=== PATIENT | female | born 1990 | race Caucasian/White ===

== ENCOUNTER 2019-08-28 13:39 | Emergency (ER) | payer MEDICAID, SELFPAY ==
[2019-08-28 13:52] VITALS: BMI 24.5
[2019-08-28 13:57] VITALS: BP 122/87; PULSE 84; RESP 16; TEMP 36.8; O2SAT 96
[2019-08-28 14:07] VITALS: O2SAT 96
--- NOTE | 2019-08-28 14:07 | ED_ITS ---
HPI - Fall General: Chief Complaint: Fall Stated Complaint: RIGHT WRIST PAIN/FALL AND LEFT KNEE PAIN Time Seen by Provider: 08/28/19 13:55 History of Present Illness: HPI Narrative: 27-year-old female tripped last night around 9 or 10:00 at night while carrying her daughter into how she stumbled on threshold and went down she scraped her left knee and fell on her right hand pretty significant abrasion to the knee no active bleeding. She complaining of right wrist pain there is no deformity or swelling. No previous injury to the knee or the wrist affected today. She denies any other injuries not strike her head did not lose consciousness her last tetanus shot was approximately 3 years ago. MD complaint: fall Onset (ago): hour(s) (15) Fall from: other (Stumbled on the stairs while going into the house) Place fall occurred: home Loss of consciousness: None Prolonged down time: no Symptoms prior to fall: none Context: tripped/slipped Severity: severe Quality: burning and sharp Associated symptoms-after fall: Denies abdominal pain, chest pain, confusion, difficulty walking, headache(s), hematuria, lightheadedness, neck pain, numbness, short of breath, vertigo or weakness Review of Systems Const: Denies: fever, chills, body aches, change in appetite, fatigue or malaise ENMT: Denies: throat pain, ear pain, nasal discharge or nasal congestion Card: Denies: chest pain or lightheadedness Resp: Denies: shortness of breath, productive cough or non-productive cough GI: Denies: abdominal pain : Denies: blood in urine Musc: Denies: neck pain Skin/Breast: Denies: rash or itching Neuro: Denies: headache, difficulty walking, vertigo or confusion [facility] ED PFSH: Social History Smoking and tobacco status: current every day smoker Female Reproductive History: Date of last menstrual period: 07/29/19 Physical Exam Const: COMMON NORMALS: no apparent distress GENERAL APPEARANCE: cooperative and comfortable ORIENTATION/CONSCIOUSNESS: Yes awake, Yes oriented to person, Yes oriented to place and Yes oriented to time HENMT: COMMON NORMALS: normocephalic, head/scalp atraumatic, hearing grossly normal bilaterally, external ears normal, EAC's normal, TM's normal bilaterally, nasal mucous membranes and turbinates normal, moist oral mucous membranes and oropharynx normal HEAD & SCALP: normocephalic and atraumatic NOSE: nasal mucous membranes and turbinates normal EXTERNAL EAR: Yes external ears normal EXTERNAL AUDITORY CANAL: EAC's normal TYMPANIC MEMBRANE: TM's normal bilaterally Eye: COMMON NORMALS: PERRL, EOMs intact bilaterally, conjunctivae normal and no scleral icterus CONJUNCTIVA: Yes conjunctivae normal PUPIL: Yes PERRL Neck/C-Spine: COMMON NORMALS: full ROM, no lymphadenopathy, supple and no JVD Lymph: LYMPHATIC: no lymphadenopathy noted and no lymphedema noted Resp: COMMON NORMALS: normal respiratory effort, no retractions, no use of accessory muscles and clear to auscultation bilaterally AUSCULTATION: clear to auscultation bilaterally Cardio: COMMON NORMALS: no JVD, regular rate, regular rhythm and no murmurs RATE: regular rate RHYTHM: regular rhythm GI: COMMON NORMALS: soft to palpation and no hepatosplenomegaly AUSCULTATION: Yes normoactive bowel sounds PALPATION: Yes soft, No tender, No guarding and Yes no hepatosplenomegaly Extremity: COMMON NORMALS: normal to inspection, normal capillary refill, no clubbing, cyanosis or edema, no calf tenderness and no pedal edema NARRATIVE EXTREMITY EXAM: Exquisite pain in the anatomical snuffbox with mild palpation on the right wrist. Neuro: SENSORIUM/ORIENTATION: Yes oriented to person, Yes oriented to place and Yes oriented to time Skin: COMMON NORMALS: no rashes or lesions noted GENERAL SKIN EXAM: no rashes or lesions noted Course Vital Signs: Vital signs: Vital Signs Temperature 98.2 F 08/28/19 13:57 Pulse Rate 84 08/28/19 13:57 Respiratory Rate 16 08/28/19 13:57 Blood Pressure 122/87 08/28/19 13:57 Pulse Oximetry 96 08/28/19 14:07 MDM - Fall MDM Narrative: Medical decision making narrative: X-rays are normal. I am little bit concerned about a navicular fracture on the right since she is so exquisitely tender at the anatomical snuffbox. We will put her in a thumb spica splint and have her follow-up with orthopedics next week to reevaluate further advanced imaging if deemed appropriate at that time. Discharge Plan Discharge Patient Disposition: Home, Self-Care Clinical Impression: Acute pain of right wrist, Abrasion of knee, left Condition: Stable Prescriptions: New diclofenac sodium 75 mg tablet,delayed release (DR/EC) 75 mg PO Q12H PRN (Reason: pain) Qty: 20 RF: 0 Discharge Orders: Discharge Order (Routine); Ordered 08/28/19 Ordered By: Masood Hall Referrals: Christina Arambula DO [Primary Care Provider] - Discharge Diet: Usual diet Discharge Activity: Limit activity as instructed Activity Restrictions/Additional Instructions: Case management will call for follow-up with orthopedics Coding Level of Care Code ED Terrazzo Grinder for g Fwd Exam Comprehensive
--- NOTE | 2019-08-28 14:19 | XRR_ITS ---
PROCEDURE INFORMATION: Exam: XR Right Wrist Exam date and time: 08/28/2019 2:42 PM Age: 29 years old Clinical indication: Pain; Wrist; Right; Additional info: Fall pain TECHNIQUE: Imaging protocol: XR Right wrist. Views: 3 or more views. COMPARISON: No relevant prior studies available. FINDINGS: Bones/joints: Normal. Soft tissues: Normal. XR/XR wrist RT w scaphoid [id number] IMPRESSION: No acute findings.
--- NOTE | 2019-08-28 14:27 | XRR_ITS ---
PROCEDURE INFORMATION: Exam: XR Left Knee Exam date and time: 08/28/2019 2:40 PM Age: 29 years old Clinical indication: Pain; Knee; Left; Additional info: Fall pain TECHNIQUE: Imaging protocol: XR Left knee. Views: 4 or more views. COMPARISON: No relevant prior studies available. FINDINGS: Bones/joints: Normal. Soft tissues: Normal. XR/XR knee LT 4V [id number] IMPRESSION: No acute findings.
[2019-08-28] MEDS: ketorolac 60 mg/2 mL INJ IM (15:24)
[2019-08-28 15:25] VITALS: BP 135/80; PULSE 67; O2SAT 100
--- NOTE | 2019-08-31 09:55 | DCPLANNER ---
it help desk manager had message to schedule a follow up appointment for patient with ortho. it help desk manager called the ortho clinic, spoke with Rosalva, gave clinic patients information. it help desk manager was told that patients information would be printed and reviewed. Clinic will call sample case porter and patient with appointment information.
--- NOTE | 2019-09-01 14:01 | DCPLANNER ---
Patient has a follow up appointment scheduled for Friday, August at 10:00 at ortho, with Dr. Aranda. Clinic will call patient with appointment information.
--- NOTE | 2019-09-09 16:03 | DCPLANNER ---
Patient did not attend appointment scheduled for 09.06.19 with ortho.
== END 2019-08-28 16:00 | disposition home or self-care (01) ==
LOC: ER 15:24
PROVIDERS: Emergency Provider Family Medicine; Family Provider Family Medicine; PCP Family Medicine
DX: S80.212A Abrasion, left knee, initial encounter (principal); M25.531 Pain in right wrist; W18.09XA Striking against other object with subsequent fall, initial encounter; F17.210 Nicotine dependence, cigarettes, uncomplicated
CPT/HCPCS: 12345; 73110; 73564; 96372; 99281; 99283; J1885

== ENCOUNTER 2019-09-22 19:12 | Emergency (ER) | payer MEDICAID, SELFPAY ==
[2019-09-22 19:21] VITALS: BP 165/106; PULSE 82; RESP 22; TEMP 36.6; O2SAT 95; BMI 24.5
--- NOTE | 2019-09-22 20:16 | ED_ITS ---
HPI - Headache General: Chief Complaint: Headache Stated Complaint: horvath Time Seen by Provider: 09/22/19 19:46 History of Present Illness: HPI Narrative: Maryellen is a nice 29-year-old female who comes in complaining of a migraine headache. She states the headache started last night and she is taken multiple abortive medications at home but cannot get the headache to break. It was gradual in onset and not a sudden onset thunderclap type headache. The headache is global in location been most intense in the bitemporal areas. She has associated nausea and photophobia and phonophobia. She denies any fever or neck pain/stiffness. Patient states that she has headaches like this frequently but it is been a while since she had one that she had this much difficulty breaking. She denies any skin rashes, visual symptoms other than photophobia or any other exacerbating or alleviating factors. She describes the headache as severe. Associated symptoms: Reports nausea; Deny chest pain, confusion, diaphoresis, fever(s), lightheadedness, malaise, pre-syncope, rash, syncope or vomiting Review of Systems Const: Denies: fever(s), chills, body aches, fatigue, malaise, night sweats or diaphoresis Eyes: Denies: change in vision, blurry vision or blind spots ENMT: Denies: throat pain, odynophagia, hoarseness, ear or mastoid pain, ear discharge, change in hearing or nasal discharge Card: Denies: chest pain, palpitations, irregular heart rhythm, lightheadedness, syncope, pre-syncope, dyspnea on exertion or orthopnea Resp: Denies: dyspnea, productive cough, non-productive cough, wheezing, hemoptysis or chest congestion GI: Reports: nausea; Denies: abdominal pain, vomiting, hematemesis, coffee ground emesis, heartburn, diarrhea, constipation, GI cramping, hematochezia or melena : Denies: flank pain, dysuria, urinary frequency, urinary urgency, oliguria, urinary incontinence or hematuria Musc: Denies: neck pain, back pain, extremity pain, extremity swelling, joint pain, joint swelling, joint redness, joint warmth or joint stiffness Skin/Breast: Denies: rash, pruritus, erythema, skin tenderness or jaundice Neuro: Reports: headache(s); Denies: numbness in extremities, weakness in extremities, sensory changes, lack of coordination, difficulty walking, dizziness, vertigo, confusion or Slurred speech present Endo: Denies: polyuria, polydipsia, tired all the time, cold intolerance, excessive sweating, flushing, hot flashes or heat intolerance Aiden/Lymph: Denies: easy bruising, easy bleeding, petechiae, purpura or enlarged lymph nodes All/Imm: Denies: urticaria, throat swelling, tongue swelling, facial swelling or acute wheezing PFSH ED PFSH: Medical History Migraines Surgical History History of cholecystectomy History of tubal ligation Social History Smoking and tobacco status: current every day smoker Female Reproductive History: Date of last menstrual period: 07/28/19 Physical Exam Const: COMMON NORMALS: no acute distress, patient oriented x3, no limitations, healthy appearing and well nourished EXAM LIMITATIONS: no altered mental status GENERAL APPEARANCE: cooperative, well kempt and well developed HENMT: COMMON NORMALS: normocephalic, atraumatic, hearing grossly normal bilaterally, external ears normal, EAC's normal, Normal external nose present and moist oral mucous membranes HEAD & SCALP: normal to inspection, normocephalic and atraumatic FACE & SINUS: normal facial exam and face symmetric NOSE: Normal external nose present and Normal nares present EXTERNAL EAR: Yes external ears normal EXTERNAL AUDITORY CANAL: EAC's normal MOUTH: Normal oral and palatal mucosa present, lip normal and tongue normal Eye: COMMON NORMALS: Equal, round and reactive pupils present, EOMs intact bilaterally, conjunctivae normal and no scleral icterus GENERAL EYE: appearance normal, both eyes and all related structures ALIGNMENT: Yes alignment normal PERIORBITAL: periorbital findings normal EYELID: eyelids normal CONJUNCTIVA: Yes conjunctivae normal SCLERA: sclerae normal PUPIL: Yes Equal, round and reactive pupils present Neck/C-Spine: COMMON NORMALS: full ROM, no lymphadenopathy, supple, no meningeal signs and no JVD GENERAL: Yes normal visual inspection and Yes trachea midline CERVICAL SPINE: Yes cervical ROM normal Chest: COMMONS NORMALS: normal inspection of the chest and normal palpation of entire chest wall Resp: COMMON NORMALS: normal respiratory effort, No retractions, No use of accessory muscles and clear to auscultation bilaterally EFFORT & INSPECTION: Yes able to speak in complete sentences AUSCULTATION: clear to auscultation bilaterally, no crackles, no rales, no rhonchi and no wheezes Cardio: COMMON NORMALS: no JVD, regular rate, regular rhythm, S1 normal heart sound present, S2 normal heart sound present, No gallops present (Cardio), No clicks present (Cardio), No murmurs present (Cardio) and No rub (Cardio) RATE: regular rate RHYTHM: regular rhythm HEART SOUNDS: S1 normal heart sound present, S2 normal heart sound present, no click, no gallops, no murmurs and no rubs GI: COMMON NORMALS: Soft to palpation, non-tender, No hepatosplenomegaly present and no masses PALPATION: Yes Soft to palpation, No Tenderness to palpation present (GI), No Guarding due to palpation present (GI), No Rigid due to palpation, Yes No hepatosplenomegaly present, No Hernia present, No Palpable mass present and No Pulsatile mass present : COMMON NORMALS: Yes no CVA tenderness BLADDER/KIDNEY EXAM: Yes no CVA tenderness EXTERNAL FEMALE EXAM: No Hernia present Back/Pelvis: COMMON NORMALS: no CVA tenderness, thoracic and lumbar spine normal to inspection, no thoracic nor lumbar tenderness and thoraco-lumbar ROM normal Extremity: COMMON NORMALS: normal to inspection, full ROM, capillary refill normal, no joint enlargement, no clubbing, cyanosis or edema and no calf tenderness Neuro: COMMON NORMALS: patient oriented x3, CN's II-XII intact bilaterally, mo ves all extremities, no focal motor deficits and no sensory deficits noted MENINGEAL SIGNS: Yes no meningeal signs SPEECH: speech normal Psych: COMMON NORMALS: mental status grossly normal, Normal thought process present, cooperative, normal affect, speech normal and activity/motor behavior normal APPEARANCE: Yes well kempt SPEECH: Yes normal speech THOUGHT PROCESS: Normal thought process present Skin: COMMON NORMALS: no rashes or lesions noted, turgor normal, no jaundice, no petechiae and no mottling GENERAL SKIN EXAM: no rashes or lesions noted and turgor normal Course Vital Signs: Vital signs: Vital Signs Temperature 97.9 F 09/22/19 19:21 Pulse Rate 82 09/22/19 19:21 Respiratory Rate 22 H 09/22/19 19:21 Blood Pressure 165/106 09/22/19 19:21 Pulse Oximetry 95 09/22/19 19:21 MDM - Headache MDM Narrative: Medical decision making narrative: Arrival -Deb is a nice 29-year-old female who comes in with a complaint of a typical migraine headache. Her vital signs are stable and her history and physical exam do not suggest an acute life-threatening problem. The differential is considerable including migraine headaches, intracranial bleeding, meningitis, pseudotumor cerebri, toxi cologic source, infectious source, trauma among many others. Based upon the patient's history and physical exam I believe this is unlikely to be subarachnoid hemorrhage or meningitis. Patient has no fever or neck pain/stiffness. Her headache was not a sudden onset thunderclap type headache. The patient has no evidence of papilledema I believe this rules out pseudotumor cerebri. Patient has no other toxicologic type toxidrome and there is no fever to suggest an infectious cause. This time the patient does not want an extensive work-up as she feels very comfortable that this is her typical migraine. I will go ahead and initiate treatment toward migraine headaches. We will reassess after the patient has had time to allow the therapy to work. Discharge -patient is feeling much better at this time would like to go home. Her headache is almost completely gone her pain is down to a 1 out of 10. She has responded to this and she is still alert and oriented without any new complaints or new symptoms. I see no evidence of subarachnoid hemorrhage, meningitis, pseudotumor cerebri, systemic infectious or toxicologic process or otherwise. I did review with the patient at length the signs and symptoms for which to return and she states she understands all these and will follow-up as directed or return here if needed. Discharge Plan Discharge Patient Disposition: Home, Self-Care Clinical Impression: Migraines Qualifiers: Migraine type: unspecified Status migrainosus presence: without status migrainosus Intractability: not intractable Qualified Code(s): G43.909 - Migra ine, unspecified, not intractable, without status migrainosus Condition: Stable Prescriptions: No Action Tylenol Extra Strength 500 mg Tablet 500 - 1,000 mg PO PRN RF: 0 baclofen 10 mg tablet 5 - 10 mg PO TID PRN (Reason: Muscle Spasm) RF: 0 Excedrin Migraine 250-250-65 mg Tablet 1 tab PO PRN RF: 0 rizatriptan 5 mg tablet See Rx Instructions .ROUTE .COMPLEX RF: 0 Discharge Orders: Discharge Order (Routine); Ordered 09/22/19 Ordered By: Sharon Wong Referrals: Christina Arambula DO [Primary Care Provider] - 1-3 days Discharge Diet: Advance as tolerated Discharge Activity: Increase activity as tolerated Patient Instructions: Migraine Headache (ED), Acute Headache (ED) Activity Restrictions/Additional Instructions: Please return to the ER immediately for any of the signs or symptoms listed on your discharge instruction sheets, worsening/changing of your symptoms, you are not getting better as quickly as expected, or for ANY other cause or concerns. Return to the ER for return/worsening of your headache, you pass out or nearly pass out, he develop a fever, began to vomit, develop a rash, or for any other cause for concern. Coding Level of Care Code ED Toolsmith for Marbin Fwd Exam Comprehensive
[2019-09-22] MEDS: sodium chloride 0.9% 1,000 ML 999 ML IV (20:35)
[2019-09-22] MEDS: haloperidol inj 5 mg/mL INJ 1 mL IM (20:35)
[2019-09-22] MEDS: diphenhydrAMINE 50 mg/mL SDV 1mL 25 MG IVP (20:35)
[2019-09-22 21:35] VITALS: BP 133/75; PULSE 53; RESP 16; O2SAT 96
== END 2019-09-22 21:37 | disposition home or self-care (01) ==
PROVIDERS: Emergency Provider Emergency Medicine; PCP Family Medicine
DX: G43.909 Migraine, unspecified, not intractable, without status migrainosus (principal); F17.210 Nicotine dependence, cigarettes, uncomplicated
CPT/HCPCS: 12345; 96361; 96372; 96374; 96375; 99282; 99283; J0131; J1200; J1630; J7030

== ENCOUNTER 2019-11-15 14:25 | Outpatient (CLI) | payer MEDICAID, SELFPAY ==
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
== END 2019-11-15 14:26 | disposition home or self-care (01) ==
LOC: RAD 14:29
PROVIDERS: PCP Family Medicine; Visit Provider Family Medicine
DX: M54.5 Low back pain (principal)
CPT/HCPCS: 72100

== ENCOUNTER → 2020-07-20 14:08 | Outpatient (BNVA) | payer MEDICAID, SELFPAY | PROVIDERS: PCP Family Medicine; Visit Provider Orthopaedic Surgery | DX: S32.010D Wedge compression fracture of first lumbar vertebra, subsequent encounter for fracture with routine healing (principal); X58.XXXD Exposure to other specified factors, subsequent encounter; M41.84 Other forms of scoliosis, thoracic region; M54.2 Cervicalgia | CPT/HCPCS: 72050; 72072; 72110 ==

== ENCOUNTER 2020-08-30 08:47 | Outpatient (RCR) | payer MEDICAID, SELFPAY | END 2020-09-25 23:59 | disposition home or self-care (01) | LOC: SPT 08:47 | PROVIDERS: PCP Family Medicine; Referring Provider Orthopaedic Surgery; Visit Provider Orthopaedic Surgery | DX: M54.5 Low back pain (principal); G89.29 Other chronic pain | CPT/HCPCS: 97161 ==

== ENCOUNTER 2023-02-13 15:11 | Emergency (ER) | payer MEDICAID, SELFPAY ==
[2023-02-13 15:21] VITALS: BP 155/82; PULSE 99; RESP 15; TEMP 36.6; O2SAT 98; BMI 30.2
[2023-02-13 15:26] VITALS: BP 112/59; PULSE 61; RESP 18; O2SAT 97
--- NOTE | 2023-02-13 16:42 | W.ED.HA ---
HPI - Headache General: Chief Complaint: Headache Stated Complaint: migraine Time Seen by Provider: 02/13/23 16:42 History of Present Illness: 33-year-old female comes in today with migraine headache x2 days. Patient is use [id number] medications at home with minimal to no relief. Patient appears nontoxic. Patient appears in mild to moderate pain. Associated symptoms: Reports nausea; Deny chest pain, fever(s), rash or vomiting Review of Systems General: Reports: 10 or more systems reviewed and unremarkable except in HPI and below Const: Denies: fever(s) Eyes: Reports: photophobia ENMT: Reports: throat pain Card: Denies: chest pain Resp: Denies: dyspnea GI: Reports: nausea; Denies: vomiting, diarrhea or constipation : Denies: difficulty voiding Musc: Denies: neck pain or back pain Skin/Breast: Denies: rash Neuro: Reports: headache(s) PFS ED PFSH: Medical History Migraines Surgical History History of cholecystectomy History of tubal ligation Family History Mother Depression Sister Depression Thyroid disease Social History Smoking and tobacco/nicotine status: current every day tobacco/nicotine user Physical Exam Const: COMMON NORMALS: alert HENMT: COMMON NORMALS: normocephalic HEAD & SCALP: normocephalic Neck/C-Spine: COMMON NORMALS: no meningeal signs Resp: COMMON NORMALS: normal respiratory effort Cardio: COMMON NORMALS: regular rate RATE: regular rate Back/Pelvis: COMMON NORMALS: thoracic and lumbar spine normal to inspection Extremity: COMMON NORMALS: no pedal edema Neuro: SENSORIUM/ORIENTATION: Yes alert MENINGEAL SIGNS: Yes no meningeal signs Skin: COMMON NORMALS: turgor normal GENERAL SKIN EXAM: turgor normal Course Vital Signs: Vital signs: Vital Signs Temperature 97.8 F 02/13/23 15:21 Pulse Rate 99 02/13/23 15:21 Respiratory Rate 15 02/13/23 15:21 Blood Pressure 155/82 02/13/23 15:21 Pulse Oximetry 98 02/13/23 15:21 Oxygen Delivery Me thod Room Air 02/13/23 15:21 MDM - Headache Medical Decision Making 33-year-old female comes in today for complaints of migraine headache. On exam no focal neural deficits are noted. Pupils are equal and reactive. Patient moves all extremities well. No edema is noted in the extremities. Vital signs are normal except for some mild elevation in blood pressure. Differential diagnosis includes not limited to uncontrolled blood pressure, migraine headache, viral syndrome. No signs of severe illness or injury is noted. Posterior pharynx did have some mild cobblestoning. We went ahead and treated patient's headache with 10 mg of Reglan, 12-1/2 mg of diphenhydramine, and 10 mg of dexamethasone. Patient was encouraged to drink plenty of water and fluids. Use acetaminophen and ibuprofen otherwise for pain and discomfort, and continue with routine care at home. No radiology studies performed this visit Discharge Plan Discharge Patient Disposition: Home Clinical Impression: Migraines Qualifiers: Migraine type: unspecified Status migrainosus presence: without status migrainosus Intractability: not intractable Qualified Code(s): G43.909 - Migraine, unspecified, not intractable, without status migrainosus Condition: Stable Prescriptions: No Action amitriptyline 25 mg tablet 25 mg PO DAILY Tylenol Extra Strength 500 mg Tablet 500 - 1,000 mg PO PRN baclofen 10 mg tablet 5 - 10 mg PO TID PRN (Reason: Muscle Spasm) Excedrin Migraine 250-250-65 mg Tablet 1 tab PO PRN Discharge Orders: Discharge ED (Routine); Ordered 02/13/23 Ordered By: Damian Perez Referrals: Christina Arambula DO [Primary Care Provider] - Discharge Diet: Usual diet Discharge Activity: Increase activity as tolerated Patient Instructions: Migraine Headache (ED), Opioid Safety, Pain Management Activity Restrictions/Additional Instructions: Home and rest. Drink plenty water and fluids. Activity as tolerated. Follow-up with primary care for further instructions. Coding Level of Care Code ED Explosive Ordnance Technician for Marbin Dumas
[2023-02-13 17:17] VITALS: PULSE 89; RESP 18; O2SAT 97
[2023-02-13] MEDS: dexamethasone 10 mg/mL INJ IVP (17:18)
[2023-02-13] MEDS: metoclopramide 5 mg/mL SDV 2 mL 10 MG IVP (17:18)
[2023-02-13] MEDS: sodium chloride 0.9% 250 ML IV (17:18)
[2023-02-13] MEDS: diphenhydrAMINE 50 mg/mL SDV 1mL 12.5 MG IVP (17:18)
== END 2023-02-13 18:44 | disposition home or self-care (01) ==
PROVIDERS: Emergency Provider Nurse Practitioner Family; PCP Family Medicine
DX: G43.909 Migraine, unspecified, not intractable, without status migrainosus (principal); F17.210 Nicotine dependence, cigarettes, uncomplicated
CPT/HCPCS: 96374; 96375; 99284; J1100; J1200; J2765; J7050

== ENCOUNTER 2024-04-29 16:56 | Emergency (ER) | payer MEDICAID, SELFPAY ==
[2024-04-29 17:23] VITALS: BP 166/86; PULSE 60; RESP 20; TEMP 36.6; O2SAT 99; BMI 24.5
--- NOTE | 2024-04-29 20:25 | ED_ITS ---
HPI - Headache General: Chief Complaint: Headache Stated Complaint: headache Time Seen by Provider: 04/29/24 20:13 History of Present Illness: 34-year-old female with a history of antonio urvashi headaches who presents the emergency room with intractable migraine for the last several days. She had nausea and vomiting. Photophobia. She is also complaining of some dental pain on the right side. No altered mental status. No focal motor deficits. Her home medications have not worked. Related Data Home Medications Medication Instructions Recorded Confirmed acetaminophen 500 mg tablet 500 - 1,000 mg PO PRN 09/22/19 10/05/23 (Tylenol Extra Strength) fwjlngp-gxfmokipahznb-rdjfhadb 250 1 tab PO PRN 09/22/19 10/05/23 mg-250 mg-65 mg tablet (Excedrin Migraine) baclofen 10 mg tablet 5 - 10 mg PO TID PRN Muscle Spasm 09/22/19 10/05/23 albuterol sulfate 90 mcg/actuation 2 puff inhalation Q4H PRN 06/24/23 10/05/23 aerosol inhaler budesonide-formoterol HFA 160 2 puff inhalation BID 06/24/23 10/05/23 mcg-4.5 mcg/actuation aerosol inhaler (Symbicort) duloxetine 60 mg capsule,delayed 60 mg PO DAILY 10/05/23 10/05/23 release hydrocodone 10 mg-acetaminophen 1 tab PO Q6H PRN 10/05/23 10/05/23 325 mg tablet buspirone 5 mg tablet 5 mg PO TID 10/28/23 10/28/23 Previous Rx's Medication Instructions Recorded clindamycin HCl 300 mg capsule 600 mg (2 x 300 mg) PO Q8H 10 days 04/29/24 #60 caps Allergies Allergy/AdvReac Type Severity Reaction Status Date / Time ketorolac [From Toradol] Allergy ADR-Agitate Verified 04/29/24 17:28 d tramadol Allergy ADR-Agitate Verified 04/29/24 17:28 d paroxetine [From Paxil] AdvReac diarrhea, Verified 04/29/24 17:28 nausea, vomiting Review of Systems Narrative: Constitutional symptoms: Negative except as documented in HPI. Skin symptoms: Negative except as documented in HPI. Eye symptoms: Negative except as documented in HPI. ENMT symptoms: Negative except as documented in HPI. Respiratory symptoms: Negative except as documented in HPI. Cardiovascular symptoms: Negative except as documented in HPI. Gastrointestinal symptoms: Negative except as documented in HPI. Genitourinary symptoms: Negative except as documented in HPI. Musculoskeletal symptoms: Negative except as documented in HPI. Neurologic symptoms: Negative except as documented in HPI. Psychiatric symptoms: Negative except as documented in HPI. Endocrine symptoms: Negative except as documented in HPI. PFS ED PFSH: Medical History Migraines Surgical History History of cholecystectomy History of tubal ligation Family History Mother Depression Sister Depression Thyroid disease Social History Smoking and tobacco/nicotine status: unknown if used tobacco/nicotine Female Reproductive History: Date of last menstrual period: 04/26/24 Physical Exam Narrative: EXAM NARRATIVE: General: Alert, no acute distress. Skin: warm and dry Head: Normocephalic Neck: Trachea midline Eye: Extraocular movements are intact. Ears, nose, mouth and throat: Oral mucosa moist Respiratory: Respirations are non-labored Musculoskeletal: Normal ROM Neurological: Alert and oriented, No focal neurological deficit observed. Psychiatric: Cooperative, appropriate mood & affect. Course Vital Signs: Vital signs: Vital Signs Temperature 97.8 F 04/29/24 17:23 Pulse Rate 60 04/29/24 17:23 Respiratory Rate 20 H 04/29/24 17:23 Blood Pressure 166/86 04/29/24 17:23 Pulse Oximetry 99 04/29/24 17:23 Oxygen Delivery Me thod Room Air 04/29/24 17:23 MDM - Headache Medical Decision Making Assessment and plan: Migraine headache Dental infection - 50 mg IV Benadryl - 10 mg IV Reglan - 8 mg IV Benadryl - 60 mg IV Norflex -IV Decadron -IV clindamycin - Discharged home - Discussed plan with patient. Answered any questions. - Evaluation and treatment of this problem were appropriate in the emergency setting. No radiology studies performed this visit Discharge Plan Discharge Patient Disposition: Home Clinical Impression: Dental infection Migraines Qualifiers: Migraine type: unspecified Status migrainosus presence: without status migrainosus Intractability: not intractable Qualified Code(s): G43.909 - Migraine, unspecified, not intractable, without status migrainosus Condition: Stable Prescriptions: New clindamycin HCl 300 mg capsule 600 mg PO Q8H 10 Days Qty: 60 0RF No Action buspirone 5 mg tablet 5 mg PO TID albuterol sulfate 90 mcg/actuation HFA aerosol inhaler 2 puff inhalation Q4H PRN budesonide-formoterol [Symbicort] 160-4.5 mcg/actuation HFA aerosol inhaler 2 puff inhalation BID duloxetine 60 mg capsule,delayed release(DR/EC) 60 mg PO DAILY hydrocodone-acetaminophen 10-325 mg tablet 1 tab PO Q6H PRN Tylenol Extra Strength 500 mg Tablet 500 - 1,000 mg PO PRN baclofen 10 mg tablet 5 - 10 mg PO TID PRN (Reason: Muscle Spasm) Excedrin Migraine 250-250-65 mg Tablet 1 tab PO PRN Discharge Orders: Discharge ED (Routine); Ordered 04/29/24 Ordered By: Fabi Hudson Referrals: Christina Arambula, [Primary Care Provider] - 7-10 days (Please call for a follow-up appointment to evaluate your migraine headaches.) Discharge Diet: Usual diet Discharge Activity: Resume usual activity Patient Instructions: Migraine Headache (ED), Opioid Safety, Pain Management Activity Restrictions/Additional Instructions: Please follow-up with a dentist to soon as possible. Also consider following with neurology if you continue to have intractable migraines. Thank you for choosing [facility] for your healthcare needs today. Please realize this is an emergency room and that we are providing you with a medical screening exam and this may not be complete and all inclusive of all the testing and or work up that you may need to determine your ailment or severity of your illness. You have been screened and evaluated and felt safe for discharge. Health conditions do change or evolve sometimes and as such it is important that you follow up with your Primary Doctor to be re checked, 3-5 days is a general good time frame for follow up. 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
[2024-04-29] MEDS: dexamethasone 10 mg/mL INJ IVP (20:45)
[2024-04-29] MEDS: orphenadrine 30 mg/mL Inj 2 mL 60 MG IVP (20:46)
[2024-04-29] MEDS: ondansetron 2 mg/ML SDV 2 mL 8 MG IVP (20:46)
[2024-04-29] MEDS: metoclopramide 5 mg/mL SDV 2 mL 10 MG IVP (20:46)
[2024-04-29] MEDS: diphenhydrAMINE 50 mg/mL SDV 1mL IVP (20:46)
[2024-04-29] MEDS: clindamycin 900 MG/50 ML PREMIX 100 MG IV (20:47)
[2024-04-29 21:06] VITALS: PULSE 61; O2SAT 96
== END 2024-04-29 22:12 | disposition home or self-care (01) ==
PROVIDERS: Emergency Provider Emergency Medicine; PCP Family Medicine
DX: G43.909 Migraine, unspecified, not intractable, without status migrainosus (principal)
CPT/HCPCS: 96374; 96375; 99284; J1100; J1200; J2360; J2405; J2765; J3490

== ENCOUNTER 2024-05-26 08:00 | Emergency (ER) | payer MEDICAID, SELFPAY ==
[2024-05-26 08:11] VITALS: BP 143/109; PULSE 95; RESP 16; TEMP 36.4; O2SAT 98; BMI 26.4
--- NOTE | 2024-05-26 08:27 | W.ED.HA ---
HPI - Headache General: Chief Complaint: Headache Stated Complaint: migraine Time Seen by Provider: 05/26/24 08:03 Source: patient Mode of arrival: ambulatory Limitations: no limitations History of Present Illness: 34-year-old female who has a history of migraines she states that she had a migraine headache that started last night. She states that it is worsened today it is currently an 8 out of 10. States this feels like her previous migraine she has had photophobia and phonophobia denies any fever Associated symptoms: Deny chest pain, fever(s), nausea, rash or vomiting Related Data Home Medications Medication Instructions Recorded Confirmed acetaminophen 500 mg tablet 500 - 1,000 mg PO PRN 09/22/19 10/05/23 (Tylenol Extra Strength) exariwe-gfqwqlukbjwjg-cnlphbre 250 1 tab PO PRN 09/22/19 10/05/23 mg-250 mg-65 mg tablet (Excedrin Migraine) baclofen 10 mg tablet 5 - 10 mg PO TID PRN Muscle Spasm 09/22/19 10/05/23 albuterol sulfate 90 mcg/actuation 2 puff inhalation Q4H PRN 06/24/23 10/05/23 aerosol inhaler budesonide-formoterol HFA 160 2 puff inhalation BID 06/24/23 10/05/23 mcg-4.5 mcg/actuation aerosol inhaler (Symbicort) duloxetine 60 mg capsule,delayed 60 mg PO DAILY 10/05/23 10/05/23 release hydrocodone 10 mg-acetaminophen 1 tab PO Q6H PRN 10/05/23 10/05/23 325 mg tablet buspirone 5 mg tablet 5 mg PO TID 10/28/23 10/28/23 Allergies Allergy/AdvReac Type Severity Reaction Status Date / Time ketorolac [From Toradol] Allergy ADR-Agitate Verified 04/29/24 17:28 d tramadol Allergy ADR-Agitate Verified 04/29/24 17:28 d paroxetine [From Paxil] AdvReac diarrhea, Verified 04/29/24 17:28 nausea, vomiting Review of Systems Const: Denies: fever(s), chills, body aches or change in appetite ENMT: Denies: throat pain or dental pain Card: Denies: chest pain Resp: Denies: dyspnea GI: Denies: abdominal pain, nausea, vomiting or diarrhea Musc: Denies: neck pain or back pain Skin/Breast: Denies: rash Neuro: Reports: headache(s) PFSH ED PFSH: Medical History Migraines Surgical History History of tubal ligation History of cholecystectomy Family History Mother Depression Sister Depression Thyroid disease Social History Smoking and tobacco/nicotine status: unknown if used tobacco/nicotine Physical Exam Const: COMMON NORMALS: no acute distress, patient oriented x3 and healthy appearing HENMT: COMMON NORMALS: normocephalic and atraumatic HEAD & SCALP: normocephalic and atraumatic Eye: COMMON NORMALS: conjunctivae normal CONJUNCTIVA: Yes conjunctivae normal Neck/C-Spine: COMMON NORMALS: full ROM and supple Chest: COMMONS NORMALS: normal inspection of the chest Resp: COMMON NORMALS: normal respiratory effort, No retractions, No use of accessory muscles and clear to auscultation bilaterally AUSCULTATION: clear to auscultation bilaterally Cardio: COMMON NORMALS: regular rate, regular rhythm and No murmurs present (Cardio) RATE: regular rate RHYTHM: regular rhythm GI: COMMON NORMALS: Normal to inspection, nondistended, normoactive bowel sounds present, Soft to palpation, non-tender and no masses PALPATION: Yes Soft to palpation Extremity: COMMON NORMALS: normal to inspection and full ROM Neuro: COMMON NORMALS: patient oriented x3, moves all extremities and no focal motor deficits Psych: COMMON NORMALS: mental status grossly normal, Normal thought process present and cooperative THOUGHT PROCESS: Normal thought process present Skin: COMMON NORMALS: no rashes or lesions noted and no wounds GENERAL SKIN EXAM: no rashes or lesions noted Course Vital Signs: Vital signs: Vital Signs Temperature 97.6 F 05/26/24 08:11 Pulse Rate 72 05/26/24 09:43 Respiratory Rate 16 05/26/24 09:43 Blood Pressure 127/86 05/26/24 09:43 Pulse Oximetry 96 05/26/24 09:43 Oxygen Delivery Me thod Room Air 05/26/24 08:11 MDM - Headache Medical Decision Making Patient presents here with migraine headache has improved here is like her previous migraine she has no signs of subarachnoid hemorrhage or meningitis. Patient stable for discharge follow-up PCP return if worsening. Medical Records I reviewed the patient's medical records. No radiology studies performed this visit Discharge Plan Discharge Patient Disposition: Home Clinical Impression: Headache Condition: Stable Prescriptions: No Action buspirone 5 mg tablet 5 mg PO TID albuterol sulfate 90 mcg/actuation HFA aerosol inhaler 2 puff inhalation Q4H PRN budesonide-formoterol [Symbicort] 160-4.5 mcg/actuation HFA aerosol inhaler 2 puff inhalation BID duloxetine 60 mg capsule,delayed release(DR/EC) 60 mg PO DAILY hydrocodone-acetaminophen 10-325 mg tablet 1 tab PO Q6H PRN Tylenol Extra Strength 500 mg Tablet 500 - 1,000 mg PO PRN baclofen 10 mg tablet 5 - 10 mg PO TID PRN (Reason: Muscle Spasm) Excedrin Migraine 250-250-65 mg Tablet 1 tab PO PRN Discharge Orders: Discharge ED (Routine); Ordered 05/26/24 Ordered By: Mike Alexandra Referrals: Christina Arambula DO [Primary Care Provider] - Discharge Diet: Advance as tolerated Discharge Activity: Resume usual activity Patient Instructions: General Headache (ED) Coding Level of Care Code ED 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
[2024-05-26] MEDS: diphenhydrAMINE 50 mg/mL SDV 1mL IVP (08:51)
[2024-05-26] MEDS: metoclopramide 5 mg/mL SDV 2 mL 10 MG IVP (08:51)
[2024-05-26 08:57] VITALS: BP 135/87; PULSE 98; RESP 18; O2SAT 95
[2024-05-26] MEDS: morphine 4 mg/mL SDV 1 mL IVP (09:18)
[2024-05-26 09:43] VITALS: BP 127/86; PULSE 72; RESP 16; O2SAT 96
== END 2024-05-26 09:49 | disposition home or self-care (01) ==
PROVIDERS: Emergency Provider Emergency Medicine; PCP Family Medicine
DX: R51.9 Headache, unspecified (principal)
CPT/HCPCS: 96374; 96375; 99284; J1200; J2270; J2765

== ENCOUNTER 2024-05-26 14:02 | Emergency (ER) | payer MEDICAID, SELFPAY ==
[2024-05-26 14:21] VITALS: BP 113/74; PULSE 107; RESP 18; TEMP 36.8; O2SAT 96
--- NOTE | 2024-05-26 14:34 | CTR_ITS ---
PROCEDURE INFORMATION: Exam: CT Head Without Contrast Exam date and time: 05/26/2024 3:05 PM Age: 34 years old Clinical indication: Pain; Aura effect not specified; Other: Don't know; Migraine headache; Additional info: [place] TECHNIQUE: Imaging protocol: Computed tomography of the head without contrast. Radiation optimization: All CT scans at this facility use at least one of these dose optimization techniques: automated exposure control; mA and/or kV adjustment per patient size (includes targeted exams where dose is matched to clinical indication); or iterative reconstruction. COMPARISON: CT facial bones w con [id number] 03/01/2018 2:19 PM RADIATION DOSE METRICS: Total DLP (mGy-cm): 975.68 FINDINGS: Brain: No acute intracranial hemorrhage. No confluent lobar infarct. No mass effect. Cerebral ventricles: The ventricles and sulci are normal in size and shape for the patient's stated age. Paranasal sinuses: No fluid levels. Mastoid air cells: Visualized mastoid air cells are well aerated. Bones: No acute calvarial fracture. Soft tissues: Visualized soft tissues are unremarkable. CT/CT head wo con* [id number] IMPRESSION: No acute intracranial abnormality. If symptoms persist, consider further evaluation with MRI, if there are no contraindications to obtaining a MRI scan.
--- NOTE | 2024-05-26 14:37 | W.ED.HA ---
HPI - Headache General: Chief Complaint: Headache Stated Complaint: migraine Time Seen by Provider: 05/26/24 14:34 Source: patient Mode of arrival: ambulatory Limitations: no limitations History of Present Illness: 34-year-old female who has a history of migraine she is seen here earlier for migraine headache was given Reglan Benadryl states she had some slight improvement but has had return of her headache states headaches currently 9 out of 10 she has photophobia and phonophobia denies any fevers denies any recent illness. Associated symptoms: Deny chest pain, fever(s), nausea, rash or vomiting Related Data Home Medications Medication Instructions Recorded Confirmed acetaminophen 500 mg tablet 500 - 1,000 mg PO PRN PRN Fever Or 09/22/19 05/26/24 (Tylenol Extra Strength) Pain zwhtobg-mktywetzszurf-xgbtserf 250 1 tab PO PRN 09/22/19 05/26/24 mg-250 mg-65 mg tablet (Excedrin Migraine) baclofen 10 mg tablet 5 - 10 mg PO TID PRN Muscle Spasm 09/22/19 05/26/24 albuterol sulfate 90 mcg/actuation 2 puff inhalation Q4H PRN 06/24/23 05/26/24 aerosol inhaler Shortness Of Breath Or Wheezing budesonide-formoterol HFA 160 2 puff inhalation BID 06/24/23 05/26/24 mcg-4.5 mcg/actuation aerosol inhaler (Symbicort) hydrocodone 10 mg-acetaminophen 1 tab PO Q6H PRN SCIATIC PAIN 10/05/23 05/26/24 325 mg tablet buspirone 5 mg tablet 5 mg PO TID 10/28/23 05/26/24 galcanezumab-gnlm 120 mg/mL 120 mg SUBCUT Q28D 05/26/24 05/26/24 subcutaneous pen injector (Emgality Pen) sumatriptan succinate 100 mg tablet See Rx Instructions .Route .COMPLEX 05/26/24 05/26/24 venlafaxine 150 mg 150 mg PO DAILY 05/26/24 05/26/24 capsule,extended release 24 hr Allergies Allergy/AdvReac Type Severity Reaction Status Date / Time ketorolac [From Toradol] Allergy ADR-Agitate Verified 05/26/24 14:25 d tramadol Allergy ADR-Agitate Verified 05/26/24 14:25 d paroxetine [From Paxil] AdvReac diarrhea, Verified 05/26/24 14:25 nausea, vomiting Review of Systems Const: Denies: fever(s), chills, body aches or change in appetite ENMT: Denies: throat pain or dental pain Card: Denies: chest pain Resp: Denies: dyspnea GI: Denies: abdominal pain, nausea, vomiting or diarrhea Musc: Denies: neck pain or back pain Skin/Breast: Denies: rash Neuro: Reports: headache(s) PFSH ED PFSH: Medical History Migraines Surgical History History of tubal ligation History of cholecystectomy Family History Mother Depression Sister Depression Thyroid disease Social History Smoking and tobacco/nicotine status: unknown if used tobacco/nicotine Female Reproductive History: Date of last menstrual period: 05/07/24 Physical Exam Const: COMMON NORMALS: no acute distress, patient oriented x3 and healthy appearing HENMT: COMMON NORMALS: normocephalic and atraumatic HEAD & SCALP: normocephalic and atraumatic Eye: COMMON NORMALS: Equal, round and reactive pupils present and EOMs intact bilaterally PUPIL: Yes Equal, round and reactive pupils present Neck/C-Spine: COMMON NORMALS: full ROM, supple and no meningeal signs Chest: COMMONS NORMALS: normal inspection of the chest and normal palpation of entire chest wall Resp: COMMON NORMALS: normal respiratory effort, No retractions, No use of accessory muscles and clear to auscultation bilaterally AUSCULTATION: clear to auscultation bilaterally Cardio: COMMON NORMALS: regular rate, regular rhythm and No murmurs present (Cardio) RATE: regular rate RHYTHM: regular rhythm Extremity: COMMON NORMALS: normal to inspection and full ROM Neuro: COMMON NORMALS: patient oriented x3, moves all extremities and no focal motor deficits MENINGEAL SIGNS: Yes no meningeal signs Psych: COMMON NORMALS: mental status grossly normal, Normal thought process present and cooperative THOUGHT PROCESS: Normal thought process present Skin: COMMON NORMALS: no rashes or lesions noted and no wounds GENERAL SKIN EXAM: no rashes or lesions noted Course Vital Signs: Vital signs: Vital Signs Temperature 98.3 F 05/26/24 14:21 Pulse Rate 81 05/26/24 15:50 Respiratory Rate 18 05/26/24 14:21 Blood Pressure 127/85 05/26/24 15:50 Pulse Oximetry 94 05/26/24 15:50 MDM - Headache Medical Decision Making Patient presents here with a headache she feels improved here headaches currently a 1 out of 10 her inflammatory markers here are negative she has no signs of meningitis I did a CT of her head that was negative this is not the worst headache of her life or thunderclap it is consistent with her migraines no signs of subarachnoid hemorrhage. She does have some mildly elevated liver enzymes she has no abdominal pain no vomiting informed her she needs to follow-up with her PCP to have those redrawn in roughly 5 to 7 days she is return to the ER sure worsens she understands agrees to plan Medical Records I reviewed the patient's medical records. Lab Data I reviewed the patient's lab results. 05/26/24 14:55 05/26/24 14:[address] 05/26/24 14:34 IMPRESSION: No acute intracranial abnormality. If symptoms persist, consider further evaluation with MRI, if there are no contraindications to obtaining a MRI scan. Laboratory Results WBC 2.67 10^3/uL (3.29-11.43) L 05/26/24 14:55 RBC 5.16 10^6/uL (3.85-5.65) 05/26/24 14:55 Hgb 15.30 g/dL (11.27-16.99) 05/26/24 14:55 Hct 44.8 % (36-47) 05/26/24 14:55 MCV 86.8 fl (85-98) 05/26/24 14:55 MCH 29.7 pg (27-33) 05/26/24 14:55 MCHC 34.2 g/dL (30-55) 05/26/24 14:55 RDW 13.0 % (12.1-15.1) 05/26/24 14:55 Plt Count 215 10^3/cmm (157-399) 05/26/24 14:55 MPV 10.3 fL (7.4-10.4) 05/26/24 14:55 Neut % (Auto) 67.8 % 05/26/24 14:55 Lymph % (Auto) 22.5 % 05/26/24 14:55 [place] % (Auto) 7.5 % 05/26/24 14:55 Eos % (Auto) 0.7 % 05/26/24 14:55 Baso % (Auto) 1.1 % 05/26/24 14:55 Neut # (Auto) 1.81 10^3/uL (1.8-7.7) 05/26/24 14:55 Lymph # (Auto) 0.6 10^3/uL (0.8-4.8) L 05/26/24 14:55 [place] # (Auto) 0.2 10^3/uL (0.2-0.9) 05/26/24 14:55 Eos # (Auto) 0.0 10^3/uL (0.0-0.8) 05/26/24 14:55 Baso # (Auto) 0.0 10^3/uL (0.0-0.1) 05/26/24 14:55 Nucleated RBC % (auto) 0 % 05/26/24 14:55 Nucleated RBCs # 0.0 /100WBC 05/26/24 14:55 ESR 2 mm/hr (0-15) 05/26/24 16:24 Sodium 136 mmol/L (136-145) 05/26/24 14:55 Potassium 3.4 mmol/L (3.5-5.1) L 05/26/24 14:55 Chloride 101 mmol/L (98-107) 05/26/24 14:55 Carbon Dioxide 21 mmol/L (22-29) L 05/26/24 14:55 Anion Gap 17.4 (5-19) 05/26/24 14:55 BUN 8 mg/dL (6-20) 05/26/24 14:55 Creatinine 0.6 mg/dL (0.5-0.9) 05/26/24 14:55 GFR Calculation 114.4 mL/min (90-130) 05/26/24 14:55 Glucose 107 mg/dL (65-115) 05/26/24 14:55 Calculated Osmolality 281 mOsm/kg (285-295) L 05/26/24 14:55 Calcium 8.3 mg/dL (8.5-10.5) L 05/26/24 14:55 Total Bilirubin 0.3 mg/dL (0.15-1.2) 05/26/24 14:55 AST 473 U/L (0-32) H 05/26/24 14:55 ALT 304 U/L (0-33) H 05/26/24 14:55 Alkaline Phosphatase 201 U/L (35-105) H 05/26/24 14:55 C-Reactive Protein 9.4 mg/L (0.0-4.9) H 05/26/24 16:24 Total Protein 6.5 g/dL (6.6-8.7) L 05/26/24 14:55 Albumin 4.1 g/dL (3.5-5.2) 05/26/24 14:55 Globulin 2.4 g/dL (1.3-4.6) 05/26/24 14:55 All radiology interpretation(s) finalized by discharge Discharge Plan Discharge Patient Disposition: Home Clinical Impression: Headache Condition: Stable Prescriptions: No Action buspirone 5 mg tablet 5 mg PO TID albuterol sulfate 90 mcg/actuation HFA aerosol inhaler 2 puff inhalation Q4H PRN (Reason: Shortness Of Breath Or Wheezing) budesonide-formoterol [Symbicort] 160-4.5 mcg/actuation HFA aerosol inhaler 2 puff inhalation BID hydrocodone-acetaminophen 10-325 mg tablet 1 tab PO Q6H PRN (Reason: SCIATIC PAIN) acetaminophen [Tylenol Extra Strength] 500 mg Tablet 500 - 1,000 mg PO PRN PRN (Reason: Fever Or Pain) baclofen 10 mg tablet 5 - 10 mg PO TID PRN (Reason: Muscle Spasm) Excedrin Migraine 250-250-65 mg Tablet 1 tab PO PRN sumatriptan succinate 100 mg tablet See Rx Instructions .ROUTE .COMPLEX Rx Instructions: TAKE 1 TABLET BY MOUTH AT ONSET OF MIGRAINE. MAY REPEAT IN 2 HOURS MAX DOSE 2 TABLETS IN 24 HOURS venlafaxine 150 mg capsule,extended release 24hr 150 mg PO DAILY Emgality Pen 120 mg/mL pen injector 120 mg SUBCUT Q28D Discharge Orders: Discharge ED (Routine); Ordered 05/26/24 Ordered By: Mike Alexandra Referrals: Christina Arambula DO [Primary Care Provider] - Discharge Diet: Advance as tolerated Discharge Activity: Resume usual activity Patient Instructions: Headache Coding Level of Care Code ED [employer]le [employer] D[employer] for Marbin Dumas
[2024-05-26] MEDS: valproic acid inj 500 MG in sodium chloride 0.9% 50 ML 55 MG IV (14:48)
[2024-05-26] MEDS: ondansetron 2 mg/ML SDV 2 mL 4 MG IVP (14:49)
[2024-05-26] MEDS: dihydroergotamine 1 mg/mL Inj 0.5 MG IVP ×2 (14:50→15:48)
[2024-05-26] MEDS: diphenhydrAMINE 50 mg/mL SDV 1mL 25 MG IVP (14:53)
[2024-05-26 15:01] VITALS: BP 150/96; PULSE 84; O2SAT 97
[2024-05-26 15:06] LABS: Basophils % 1.1 %; Eosinophils % 0.7 %; Hematocrit 44.8 % (36-47); Lymphocytes # 0.6 10^3/uL (0.8-4.8); Lymphocytes % 22.5 %; Mean Corpuscular HGB Conc 34.2 g/dL (30-55); Mean Corpuscular Hemoglobin 29.7 pg (27-33); Mean Corpuscular Volume 86.8 fl (85-98); Mean Platelet Volume 10.3 fL (7.4-10.4); Monocytes # 0.2 10^3/uL (0.2-0.9); Monocytes % 7.5 %; Neutrophils # 1.81 10^3/uL (1.8-7.7); Neutrophils % 67.8 %; Nucleated Red Blood Cells % 0 %; Platelet Count 215 10^3/cmm (157-399); Red Blood Count 5.16 10^6/uL (3.85-5.65); White Blood Count 2.67 10^3/uL (3.29-11.43)
[2024-05-26 15:50] VITALS: BP 127/85; PULSE 81; O2SAT 94
[2024-05-26] MEDS: prochlorperazine 10 mg/2 mL Inj IVP (15:53)
[2024-05-26 15:57] LABS: Alanine Aminotransferase 304 U/L (0-33); Albumin Level 4.1 g/dL (3.5-5.2); Alkaline Phosphatase 201 U/L (35-105); Anion Gap 17.4 (5-19); Aspartate Amino Transferase 473 U/L (0-32); Blood Urea Nitrogen 8 mg/dL (6-20); Calcium 8.3 mg/dL (8.5-10.5); Carbon Dioxide 21 mmol/L (22-29); Chloride 101 mmol/L (98-107); Creatinine Clr Calc Pharmacy 116.5786; Globulin 2.4 g/dL (1.3-4.6); Glomerular Filtration Rate 114.4 mL/min (90-130); Glucose 107 mg/dL (65-115); Osmolality Calculated 281 mOsm/kg (285-295); Potassium 3.4 mmol/L (3.5-5.1); Sodium 136 mmol/L (136-145); Total Bilirubin 0.3 mg/dL (0.15-1.2); Total Protein 6.5 g/dL (6.6-8.7)
[2024-05-26 16:50] LABS: Erythrocyte Sedimentation Rate 2 mm/hr (0-15)
[2024-05-26 16:54] LABS: C Reactive Protein 9.4 mg/L (0.0-4.9)
[2024-05-26 17:28] VITALS: BP 141/82; PULSE 89; O2SAT 96
[2024-05-26 17:29] VITALS: BP 141/82; PULSE 81; O2SAT 96
[2024-05-26 22:12] LABS: Hepatitis A Antibody IgM Non-Reactive (Nonreactive); Hepatitis B Core AB, Total Non-Reactive (Nonreactive); Hepatitis B Surface AB 159.3 (11.5-1000); Hepatitis B Surface Antigen Non-Reactive (Nonreactive); Hepatitis C Virus Antibody Non-Reactive (Nonreactive)
== END 2024-05-26 17:32 | disposition home or self-care (01) ==
PROVIDERS: Emergency Provider Emergency Medicine; PCP Family Medicine
DX: R51.9 Headache, unspecified (principal)
CPT/HCPCS: 36415; 70450; 80053; 85025; 85651; 86140; 86705; 86706; 86709; 86803; 87340; 96374; 96375; 99285; J0780; J1110; J1200; J2405; J3490

== ENCOUNTER 2024-07-13 08:29 | Emergency (ER) | payer MEDICAID, SELFPAY ==
[2024-07-13] VITALS (7 sets, daily range): BP systolic 128–155; BP diastolic 73–89; PULSE 52–84; RESP 16–20; TEMP 36.6; O2SAT 91–98
--- NOTE | 2024-07-13 09:12 | W.ED.HA ---
HPI - Headache General: Chief Complaint: Headache Stated Complaint: H/A Time Seen by Provider: 07/13/24 08:38 History of Present Illness: 34-year-old female presents emergency room with complaint of headache that started last night. Patient has known history of migraine she has 2 different triptans at home she has tried to relieve the migraines without success. She is also on prophylactic Emgality she was a little late with a shot this month and now is having difficult time getting control of her headache. She has had nausea and photophobia. She relates most of the pain in the left side of her head. No head trauma. Associated symptoms: Reports nausea; Deny chest pain, fever(s) or rash Related Data Home Medications ?Medication ?Instructions ?Recorded ?Confirmed acetaminophen 500 mg tablet 500 - 1,000 mg PO PRN PRN Fever Or 09/22/19 07/13/24 (Tylenol Extra Strength) Pain ellnthb-rtzfhlqnxyfkx-zmerlbql 250 1 tab PO PRN 09/22/19 07/13/24 mg-250 mg-65 mg tablet (Excedrin Migraine) albuterol sulfate 90 mcg/actuation 2 puff inhalation Q4H PRN 06/24/23 07/13/24 aerosol inhaler Shortness Of Breath Or Wheezing budesonide-formoterol HFA 160 2 puff inhalation BID 06/24/23 07/13/24 mcg-4.5 mcg/actuation aerosol inhaler (Symbicort) hydrocodone 10 mg-acetaminophen 1 tab PO Q6H PRN SCIATIC PAIN 10/05/23 07/13/24 325 mg tablet galcanezumab-gnlm 120 mg/mL 120 mg SUBCUT Q28D 05/26/24 07/13/24 subcutaneous pen injector (Emgality Pen) sumatriptan succinate 100 mg tablet See Rx Instructions .Route .COMPLEX 05/26/24 07/13/24 venlafaxine 150 mg 150 mg PO DAILY 05/26/24 07/13/24 capsule,extended release 24 hr baclofen 20 mg tablet 20 mg PO TID 07/13/24 07/13/24 buspirone 15 mg tablet 15 mg PO TID 07/13/24 07/13/24 rizatriptan 10 mg tablet 10 mg PO PRN PRN Migraine Headache 07/13/24 07/13/24 Previous Rx's ?Medication ?Instructions ?Recorded promethazine 25 mg tablet 25 mg PO Q6H PRN nausea and 07/13/24 vomiting #20 tabs Allergies Allergy/AdvReac Type Severity Reaction Status Date / Time ketorolac (From Toradol) Allergy ADR-Agitate Verified 05/26/24 14:25 d tramadol Allergy ADR-Agitate Verified 05/26/24 14:25 d paroxetine (From Paxil) AdvReac diarrhea, Verified 05/26/24 14:25 nausea, vomiting Review of Systems Const: Denies: fever(s) or chills Card: Denies: chest pain Resp: Denies: dyspnea GI: Reports: nausea; Denies: abdominal pain : Denies: dysuria, urinary frequency or urinary urgency Musc: Denies: neck pain or back pain Skin/Breast: Denies: rash Neuro: Reports: headache(s) PFS ED PFSH: Medical History Migraines Surgical History History of tubal ligation History of cholecystectomy Family History Mother Depression Sister Depression Thyroid disease Social History Smoking and tobacco/nicotine status: unknown if used tobacco/nicotine Physical Exam Const: COMMON NORMALS: no acute distress GENERAL APPEARANCE: cooperative and comfortable ORIENTATION/CONSCIOUSNESS: Yes awake, Yes oriented to person, Yes oriented to place and Yes oriented to time HENMT: COMMON NORMALS: normocephalic, atraumatic and hearing grossly normal bilaterally HEAD & SCALP: normocephalic and atraumatic Resp: COMMON NORMALS: normal respiratory effort, No retractions, No use of accessory muscles and clear to auscultation bilaterally AUSCULTATION: clear to auscultation bilaterally Cardio: COMMON NORMALS: regular rate, regular rhythm and No murmurs present (Cardio) RATE: regular rate RHYTHM: regular rhythm GI: COMMON NORMALS: Soft to palpation and No hepatosplenomegaly present AUSCULTATION: Yes normoactive bowel sounds PALPATION: Yes Soft to palpation, No Tenderness to palpation present (GI), No Guarding due to palpation present (GI) and Yes No hepatosplenomegaly present Extremity: COMMON NORMALS: normal to inspection, capillary refill normal, no clubbing, cyanosis or edema, no calf tenderness and no pedal edema Neuro: SENSORIUM/ORIENTATION: Yes oriented to person, Yes oriented to place and Yes oriented to time OTHER: No focal neurologic deficits are noted Skin: COMMON NORMALS: no rashes or lesions noted GENERAL SKIN EXAM: no rashes or lesions noted Course Vital Signs: Vital signs: Vital Signs Temperature 97.8 F 07/13/24 08:38 Pulse Rate 57 L 07/13/24 13:07 Respiratory Rate 17 07/13/24 13:07 Blood Pressure 145/80 07/13/24 13:07 Pulse Oximetry 91 07/13/24 13:07 MDM - Headache Medical Decision Making Using migraine orders that were eventually able to get after several doses of DHE and valproic acid control of her headache she is feeling much better she is somewhat sedate but reports her headaches down to the level of the 2 will discharge her home given promethazine use as needed. Follow-up with her primary care doctor return if has further problems Medical Records I reviewed the patient's medical records. Lab Data I reviewed the patient's lab results. No radiology studies performed this visit Discharge Plan Discharge Patient Disposition: Home Clinical Impression: Migraines Qualifiers: Migraine type: unspecified Status migrainosus presence: without status migrainosus Intractability: not intractable Qualified Code(s): G43.909 - Migraine, unspecified, not intractable, without status migrainosus Condition: Stable Prescriptions: New promethazine 25 mg tablet 25 mg PO Q6H PRN (Reason: nausea and vomiting) Qty: 20 0RF No Action albuterol sulfate 90 mcg/actuation HFA aerosol inhaler 2 puff inhalation Q4H PRN (Reason: Shortness Of Breath Or Wheezing) budesonide-formoterol [Symbicort] 160-4.5 mcg/actuation HFA aerosol inhaler 2 puff inhalation BID hydrocodone-acetaminophen 10-325 mg tablet 1 tab PO Q6H PRN (Reason: SCIATIC PAIN) acetaminophen [Tylenol Extra Strength] 500 mg Tablet 500 - 1,000 mg PO PRN PRN (Reason: Fever Or Pain) Excedrin Migraine 250-250-65 mg Tablet 1 tab PO PRN rizatriptan 10 mg tablet 10 mg PO PRN PRN (Reason: Migraine Headache) baclofen 20 mg tablet 20 mg PO TID buspirone 15 mg tablet 15 mg PO TID sumatriptan succinate 100 mg tablet See Rx Instructions .ROUTE .COMPLEX Rx Instructions: TAKE 1 TABLET BY MOUTH AT ONSET OF MIGRAINE. MAY REPEAT IN 2 HOURS MAX DOSE 2 TABLETS IN 24 HOURS venlafaxine 150 mg capsule,extended release 24hr 150 mg PO DAILY Emgality Pen 120 mg/mL pen injector 120 mg SUBCUT Q28D Discharge Orders: Discharge ED (Routine); Ordered 07/13/24 Ordered By: Masood Hall Referrals: Christina Arambula, [Primary Care Provider] - Discharge Diet: Usual diet Discharge Activity: Increase activity as tolerated Patient Instructions: Opioid Safety, Pain Management Activity Restrictions/Additional Instructions: Thank you for choosing [facility] for your healthcare needs today. It is very important that you follow up as instructed or that you return to the Emergency Department should you have concerns or if your condition changes or worsens in any way. You are seen in room emergency room for migraine headache. Improved with a migraine cocktail given. Continue to use the sumatriptan or rizatriptan as needed for breakthrough headaches you can also use promethazine along with that if needed for nausea or headache. 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
[2024-07-13] MEDS: ondansetron 2 mg/ML SDV 2 mL 4 MG IVP (09:38)
[2024-07-13] MEDS: diphenhydrAMINE 50 mg/mL SDV 1mL 25 MG IVP (09:39)
[2024-07-13] MEDS: dihydroergotamine 1 mg/mL Inj 0.5 MG IVP ×6 (09:51→11:49)
[2024-07-13] MEDS: valproic acid inj 500 MG in sodium chloride 0.9% (plus) 50 ML 55 MG IV ×2 (10:54→12:00)
== END 2024-07-13 13:07 | disposition home or self-care (01) ==
PROVIDERS: Emergency Provider Family Medicine; PCP Family Medicine
DX: G43.909 Migraine, unspecified, not intractable, without status migrainosus (principal)
CPT/HCPCS: 96365; 96366; 96376; 99284; J1110; J1200; J2405; J3490

== ENCOUNTER 2024-11-29 15:55 | Emergency (ER) | payer MEDICAID, SELFPAY ==
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
--- OUTSIDE RECORDS SUMMARY | 2024-11-29 15:59 | XMS_ITS | Encounter Summary ---
Author Organization [facility] Address [address] [place] [address] Care Team Providers Care Licensed Practical Nurse Name Role Phone Christina Arambula Lulu ALVAREZ Primary Care Provider Reason for Referral * Outpatient Services (Routine) - Closed Specialty Diagnoses / Procedures Referred By Contac t Referred To Contact Radiology Diagnoses Supervision of high risk in second trimester History of delivery, currently Nausea and vomiting during Tobacco abuse Low weight gain during in second trimester Procedures US OB LESS THAN 14 WKS SINGLE + TRANSVAG US OB 14+ WKS SINGLE GEST Shazia Croft MD Phone: tel: fax: [facility] Ul[facility] [place] [address] [place] [address] Phone: tel: fax: Referral ID Status Reason Start Date Expiration Date V isits Requested Visits Authorized [id number] Closed [facility] CTS to Schedule ([facility]) 03/15/2017 04/15/2018 1 1 BOTTLING MACHINE OPERATOR Encounter Details Date Type Department Care Team (Late st Contact Info) Description 04/24/2017 [facility] [address] [place] [id number] Shazia Croft MD [address] [place] [address] Supervision of high risk in second trimester; History of delivery, currently ; Nausea and vomiting during ; Tobacco abuse; Low weight gain during in second trimester Social History Tobacco Use Types Packs/Day Years Used Date Smoking Tobacco: Every Day Cigarettes 0.3 9 Smokeless Tobacco: Never Alcohol Use Standard Drinks/Week Comments No 0 (1 standard drink = 0.6 oz pur e alcohol) Comments Yes Sex and Gender Information Value Date Recorded Sex Assigned at Not on file Legal Sex Female 7:29 AM MILK BOTTLING MACHINE OPERATOR Gender Identity Not on file Sexual Orientation Not on file documented as of this encounter Plan of Treatment Not on file documented as of this encounter Results * US OB LESS THAN 14 WKS SINGLE + TRANSVAG (04/24/2017 11:31 AM MILK BOTTLING MACHINE OPERATOR) Anatomical Region Laterality Modality Pelvis Ultrasound 04/24/2017 11:3 1 AM MILK BOTTLING MACHINE OPERATOR Impressions 04/24/2017 3:52 PM MILK BOTTLING MACHINE OPERATOR IMPRESSION Findings Comment Gestational age is in agreement with established dating abnormalities are not identified But incomplete assessment: lip, nose, LVOT Suspected Cervical shortening not found Cervical lenght 4.35 cm with no funneling present Narrative 04/24/2017 3:52 PM MILK BOTTLING MACHINE OPERATOR Boby Complete >14 Pat. Name: EVELYN PATEL Study Date: 04/24/2017 11:31am Pat. NO: [id number] Referring MD: Site: [employer] Architect: Evita Christensen RDMS : 1990 Age: 27 INDICATION Screening for Malformations by US to include cercival lenght. hx of labor CODING Diagnosis Z36: Screening for Malformations by US. Procedures 41549: OBUS > 14 weeks. 76613: OB Transvaginal. HISTORY OB History : 3. Para: 2. MATERNAL ASSESSMENT Physical Exam Weight 72 kg. BMI 32.18 kg/m . METHOD Transabdominal and transvaginal ultrasound examination. Adequate visualization. Graves . Number of fetuses: 1. DATING Method of dating: based on the stated dating GA by stated dating 21 w + 4 d RACHAEL by stated dating : 08/31/2017 Ultrasound examination on: 04/24/2017 GA by U/S based upon: AC, BPD, EFW, Femur, HC GA by U/S 21 w + 1 d RACHAEL by U/S: 09/03/2017 Assigned: Dating performed on 04/24/2017, based on the stated dating Assigned GA 21 w + 4 d Assigned RACHAEL: 08/31/2017 BIOMETRY Main Biometry: BPD 50.5 mm 37% 21w 2d Hadlock HC 180.7 mm 6% 20w 3d Hadlock AC 162.0 mm 33% 21w 2d Hadlock Femur 36.0 mm 35% 21w 3d Hadlock Cerebellum tr 22.1 mm 40% 21w 4d Barnett CM 4.5 mm 22% Nicolaides Nuchal fold 2.97 mm Humerus 33.3 mm 36% 21w 2d Pablo Weight Calculation: EFW 411 g 28% 21w 1d Hadlock EFW (lb,oz) 0 lb oz 14 Calculated by Mahsa ([id number]) Proportionality Ratios: HC / AC 1.12 24% Nicolaides FL / BPD 0.71 FL / HC 0.20 FL / AC 0.22 Amniotic Fluid / FHR: FHR 142 bpm GENERAL EVALUATION Cardiac activity: present. FHR 142 bpm. movements: visualized. Presentation: breech. Placenta: anterior. Umbilical cord: 3 vessel cord. Amniotic fluid: The amniotic fluid is subjectively normal. ANATOMY The following structures were visualized with normal appearance: Head Brain Lateral cerebral ventricles. Cisterna magna. Midline falx. Choroid plexus. Cavum septi pellucidi. Cerebellum. Face Profile. Spine Cervical, thoracic, lumbar and sacral spine appear normal. Heart Situs. Four chamber view. Right ventricular outflow tract. 3-vessel - trachea view. Abdominal wall Umbilical cord insertion site. Stomach Fluid filled stomach seen. Kidneys Kidneys appear normal bilaterally. Bladder Fluid filled bladder seen. Upper extrem. Lower extrem. The following structures could not be adequately visualized: Face. Heart. The following structures could not be visualized: Face Nose. Lips. Heart Left ventricular outflow tract. Gender: female. MATERNAL STRUCTURES Uterus Normal. Appearance: No abnormalities visualized. Right Ovary Visualized. Appearance: No adnexal mass identified. Left Ovary Visualized. Appearance: No adnexal mass identified. Cul de Sac Visualized. Imaging of the cul-de-sac is unremarkable. COMMENT . FOLLOW-UP Follow up is recommended in 4 weeks to complete anatomic survey. She will not need a cervical length at that point. Procedure Note Jerrod Varela MD - 04/24/2017 [place] Complete >14 Pat. Name:Laura PATEL Date:04/24/2017 11:31am Pat. NO: [id number] MD: Site:Roulaographer:Evita Christensen RDMS :1990Age:27 INDICATION Screening for Malformations by US to include cercival lenght. hx of labor CODING Diagnosis Z36: Screening for Malformations by US. Procedures 31673: OBUS > 14 weeks. 58403: OB Transvaginal. HISTORY OB History : 3. Para: 2. MATERNAL ASSESSMENT Physical Exam Weight 72 kg. BMI 32.18 kg/m . METHOD Transabdominal and transvaginal ultrasound examination. Adequate visualization. Graves . Number of fetuses: 1. DATING Method of dating:based on the stated dating GA by stated dating 21 w + 4 d RACHAEL by stated dating :08/31/2017 Ultrasound examination on:04/24/2017 GA by U/S based upon:AC, BPD, EFW, Femur, HC GA by U/S21 w + 1 d RACHAEL by U/S:09/03/2017 Assigned:Dating performed on 04/24/2017, based on the stated dating Assigned GA21 w + 4 d Assigned RACHAEL:08/31/2017 BIOMETRY Main Biometry: BPD 50.5 mm 37% 21w 2d Hadlock HC 180.7 mm 6% 20w 3d Hadlock AC 162.0 mm 33% 21w 2d Hadlock Femur 36.0 mm 35% 21w 3d Hadlock Cerebellum tr 22.1 mm 40% 21w 4d Barnett CM 4.5 mm 22% Nicolaides Nuchal fold 2.97 mm Humerus 33.3 mm 36% 21w 2d Pablo Weight Calculation: EFW 411 g 28% 21w 1d Hadlock EFW (lb,oz) 0 lb oz 14 Calculated by [employer]sa ([id number]-FL) Proportionality Ratios: HC / AC 1.12 24% Nicolaides FL / BPD 0.71 FL / HC 0.20 FL / AC 0.22 Amniotic Fluid / FHR: FHR 142 bpm GENERAL EVALUATION Cardiac activity: present. FHR 142 bpm. movements: visualized. Presentation: breech. Placenta: anterior. Umbilical cord: 3 vessel cord. Amniotic fluid: The amniotic fluid is subjectively normal. ANATOMY The following structures were visualized with normal appearance: Head Brain Lateral cerebral ventricles. Cisterna magna. Midline falx. Choroid plexus. Cavum septi pellucidi. Cerebellum. Face Profile. Spine Cervical, thoracic, lumbar and sacral spine appear normal. Heart Situs. Four chamber view. Right ventricularoutflow tract. 3-vessel - trachea view. Abdominal wall Umbilical cord insertion site. Stomach Fluid filled stomach seen. Kidneys Kidneys appear normal bilaterally. Bladder Fluid filled bladder seen. Upper extrem. Lower extrem. The following structures could not be adequately visualized: Face. Heart. The following structures could not be visualized: Face Nose. Lips. Heart Left ventricular outflow tract. Gender: female. MATERNAL STRUCTURES Uterus Normal. Appearance: No abnormalities visualized. Right Ovary Visualized. Appearance: No adnexal mass identified. Left Ovary Visualized. Appearance: No adnexal mass identified. Cul de Sac Visualized. Imaging of the cul-de-sac is unremarkable. COMMENT . FOLLOW-UP Follow up is recommended in 4 weeks to complete anatomic survey. She will not need a cervical length at that point. IMPRESSION Findings Comment Gestational age is in agreement with established dating abnormalities are not identified But incomplete assessment: lip, nose, LVOT Suspected Cervical shortening not found Cervical lenght 4.35 cm with no funneling present us Shazia Croft MD ORDERABLES Final Resu lt documented in this encounter Visit Diagnoses Diagnosis Supervision of high risk in second trimester Unspecified high-risk History of delivery, currently with history of pre-term labor Nausea and vomiting during Tobacco abuse Tobacco use disorder Low weight gain during in second trimester documented in this encounter Additional Health Concerns Infection Onset Date Last Indicated Resolved Time R/O COVID-19 07/27/2020 07/27/2020 07/28/2020 2:04 PM CDT documented as of this encounter Care Teams Licensed Practical Nurse Relationship Specialty Start Date End Date Christina Arambula DO [address] [place] [address] PCP - General Family Practice 03/06/18 documented as of this encounter
--- OUTSIDE RECORDS SUMMARY | 2024-11-29 15:59 | XMS_ITS | Encounter Summary ---
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 Name Role Phone Christina Arambula Primary Care Provider Encounter Details Date Type Department Care Team (Late st Contact Info) Description 01/30/2015 Lab Requisition [facility] [place] [place] [address] Tru Gomez NP [facility] [place] [address] Sick Social History Tobacco Use Types Packs/Day Years Used Date Smoking Tobacco: Every Day Cigarettes Alcohol Use Standard Drinks/Week Comments No 0 (1 standard drink = 0.6 oz pur e alcohol) Comments No Sex and Gender Information Value Date Recorded Sex Assigned at Not on file 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 Gender Identity Not on file Sexual Orientation Not on file documented as of this encounter Plan of Treatment Not on file documented as of this encounter Procedures Procedure Name Priority Date/Time Associated Diagnosis Comments CBC WITH DIFFERENTIAL Routine 01/30/2015 9:49 PM CDT Sick [ICD-10-CM] TSH Routine 01/30/2015 9:49 PM CDT Sick [ICD-10-CM] BASIC METABOLIC PANEL Routine 01/30/2015 9:49 PM CDT Sick [ICD-10-CM] documented in this encounter Results * TSH (01/30/2015 9:49 PM CDT) TSH 3.70 0.27 - 4.20 uIU/mL 01/30/2015 10:56 PM CDT [email or web address] [place] Blood Collection / Unknown 01/30/2015 9:49 PM CDT 01/30/2015 9:49 PM CDT Tru Gomez NP CHEMISTRY ORDERABLES Final Resu lt [facility] [place] CLIA # [id number] [address] [place] [address] * (ABNORMAL) CBC WITH DIFFERENTIAL (01/30/2015 9:49 PM CDT) WBC 8.1 4.0 - 10.0 K/uL 01/30/2015 10:09 PM T [facility] [place] RBC 5.22 3.93 - 5.22 M/uL 01/30/2015 10:09 PM CDT [facility] [place] HEMOGLOBIN 15.4 11.2 - 15.7 g/dL 01/30/2015 10:09 PM CDT [facility] [place] HEMATOCRIT 44.1 34.1 - 44.9 % 01/30/2015 10:09 PM CDT [facility] [place] MCV 84.5 79.4 - 94.8 fL 01/30/2015 10:09 PM CDT [facility] [place] MCH 29.5 25.6 - 32.2 pg 01/30/2015 10:09 PM CDT [email or web address] [place] MCHC 34.9 32.2 - 35.5 g/dL 01/30/2015 10:09 PM CDT [facility] [place] RDW 13.5 11.0 - 14.5 % 01/30/2015 10:09 PM CDT [facility] [place] RDW-STDEV 41.9 36.9 - 56.9 fL 01/30/2015 10:09 PM CDT [facility] [place] PLATELETS 296 163 - 337 K/uL 01/30/2015 10:09 PM CDT [email or web address] [place] MPV 10.9 10.0 - 14.8 fL 01/30/2015 10:09 PM CDT [facility] [place] NEUTROPHILS 40 34 - 71 % 01/30/2015 10:09 PM CDT [facility] [place] LYMPHOCYTES 47 19 - 52 % 01/30/2015 10:09 PM CDT [facility] [place] MONOCYTES 9 5 - 13 % 01/30/2015 10:09 PM CDT [facility] [place] EOSINOPHILS 3 1 - 6 % 01/30/2015 10:09 PM CDT [facility] [place] BASOPHILS 1 0 - 1 % 01/30/2015 10:09 PM CDT [facility] [place] NEUTROPHIL ABSOLUTE 3.27 1.56 - 6.13 K/uL 01/30/2015 10:09 PM CDT [facility] [place] LYMPHOCYTE ABSOLUTE 3.79(H) 1.20 - 3.40 K/uL 01/30/2015 10:09 PM CDT [facility] [place] MONOCYTE ABSOLUTE 0.72(H) 0.24 - 0.36 K/uL 01/30/2015 10:09 PM CDT [facility] [place] EOSINOPHIL ABSOLUTE 0.24 0.04 - 0.36 K/uL 01/30/2015 10:09 PM CDT [facility] [place] BASOPHILS ABSOLUTE 0.06 0.01 - 0.08 K/uL 01/30/2015 10:09 PM CDT [facility] [place] IMMATURE GRANULOCYTES 0 % 01/30/2015 10:09 PM CDT [facility] [place] IMMATURE GRANULOCYTES ABSOLUTE 0.03 K/uL 01/30/2015 10:09 PM CDT [facility] [place] Blood Collection / Unknown 01/30/2015 9:49 PM CDT 01/30/2015 9:49 PM CDT us Tru Gomez NP HEMATOLOGY ORDERABLES Final Res ult [facility] [place] CLIA # [id number] [address] [place] [address] * BASIC METABOLIC PANEL (01/30/2015 9:49 PM CDT) SODIUM 136 136 - 145 mmol/L 01/30/2015 10:56 PM CDT [facility] [place] POTASSIUM 3.6 3.5 - 5.1 mmol/L 01/30/2015 10:56 PM CDT [facility] [place] CHLORIDE 100 98 - 107 mmol/L 01/30/2015 10:56 PM CDT [facility] [place] CO2 23 22 - 29 mmol/L 01/30/2015 10:56 PM CDT [facility] [place] CALCIUM 9.2 8.6 - 10.0 mg/dL 01/30/2015 10:56 PM CDT [facility] [place] BUN 9 6 - 20 mg/dL 01/30/2015 10:56 PM T [facility] [place] CREATININE 0.56 0.51 - 0.95 mg/dL 01/30/2015 10:56 PM CDT [facility] [place] GLUCOSE 77 74 - 106 mg/dL 01/30/2015 10:56 PM T [facility] [place] GFR >60 >=60 mL/min/1.7 3 sq meter 01/30/2015 10:56 PM T [facility] [place] Comment: eGFR has not been validated for use in the elderly (> 70 years of age), women, patients with serious co-morbid conditions, or persons with extremes of body size or muscle mass and should also be interpreted with caution in patients with acute kidney failure, dialysis dependent patients, patients reporting exceptional dietary intake (e.g. vegetarian diet, high protein diets, creatine supplementation), and patients with severe liver disease. Based on National Kidney Disease Education Program If patient is , please refer to the GFR result. GFR, >60 >=60 mL/min/1.7 3 sq meter 01/30/2015 10:56 PM CDT [facility] [place] ANION GAP 13 12 - 20 mmol/L 01/30/2015 10:56 PM CDT [facility] Blood Collection / Unknown 01/30/2015 9:49 PM CDT 01/30/2015 9:49 PM CDT Tru Gomez DIRECTOR OF LABOR RELATIONS CHEMISTRY ORDERABLES Final Resu lt [facility] [place] CLIA # [id number] [address] [place] [address] documented in this encounter Visit Diagnoses Diagnosis Sick Other unknown and unspecified cause of morbidity or mortality documented in this encounter Additional Health Concerns Infection Onset Date Last Indicated Resolved Time R/O COVID-19 07/27/2020 07/27/2020 07/28/2020 2:04 PM CDT documented as of this encounter Care Teams 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
[2024-11-29 16:02] VITALS: BP 153/79; PULSE 78; RESP 19; TEMP 36.7; O2SAT 99; BMI 30.2
--- NOTE | 2024-11-29 16:12 | W.ED.EXTPRO ---
HPI - Extremity Problem General: Chief complaint: Extremity Problem,Nontraumatic Stated complaint: L&R shoulder pain Time Seen by Provider: 11/29/24 16:03 Source: patient Mode of arrival: ambulatory Limitations: no limitations History of Present Illness: 34-year-old female who presents today with sudden onset of bilateral shoulder pain over the past 2 days. Patient states that she has a history of right shoulder pain that resolved on its own, but the last flare of this occurred about 4 years ago. She states she is unable to lift both arms very far because of the pain. She feels the pain is within her shoulder joints. Denies any pain to any other joint. Denies any recent trauma or injury. She has tizanidine at home that she takes for her chronic back pain but states this does not help with her pain at all. No other complaints at this time. MD Complaint: joint pain (bilateral shoulder pain) Onset (ago): day(s) (2) Pain Consistency: constant Location: left, right and other (Shoulders) Quality: sharp Radiation: none Relieving factors: immobilization Exacerbating factors: range of motion and palpation Associated symptoms: Reports no associated symptoms; Deny chest pain or fever(s) Related Data Home Medications ?Medication ?Instructions ?Recorded ?Confirmed acetaminophen 500 mg tablet 500 - 1,000 mg PO PRN PRN Fever Or 09/22/19 07/13/24 (Tylenol Extra Strength) Pain sqnfmmu-jkfomqntsxdbj-meipwfpc 250 1 tab PO PRN 09/22/19 07/13/24 mg-250 mg-65 mg tablet (Excedrin Migraine) albuterol sulfate 90 mcg/actuation 2 puff inhalation Q4H PRN 06/24/23 07/13/24 aerosol inhaler Shortness Of Breath Or Wheezing budesonide-formoterol HFA 160 2 puff inhalation BID 06/24/23 07/13/24 mcg-4.5 mcg/actuation aerosol inhaler (Symbicort) hydrocodone 10 mg-acetaminophen 1 tab PO Q6H PRN SCIATIC PAIN 10/05/23 07/13/24 325 mg tablet galcanezumab-gnlm 120 mg/mL 120 mg SUBCUT Q28D 05/26/24 07/13/24 subcutaneous pen injector (Emgality Pen) sumatriptan succinate 100 mg tablet See Rx Instructions .Route .COMPLEX 05/26/24 07/13/24 venlafaxine 150 mg 150 mg PO DAILY 05/26/24 07/13/24 capsule,extended release 24 hr baclofen 20 mg tablet 20 mg PO TID 07/13/24 07/13/24 buspirone 15 mg tablet 15 mg PO TID 07/13/24 07/13/24 rizatriptan 10 mg tablet 10 mg PO PRN PRN Migraine Headache 07/13/24 07/13/24 Previous Rx's ?Medication ?Instructions ?Recorded promethazine 25 mg tablet 25 mg PO Q6H PRN nausea and 07/13/24 vomiting #20 tabs prednisone 10 mg tablet 10 mg PO DAILY 6 days #20 tabs 11/29/24 Allergies Allergy/AdvReac Type Severity Reaction Status Date / Time ketorolac (From Toradol) Allergy ADR-Agitate Verified 11/29/24 16:04 d tramadol Allergy ADR-Agitate Verified 11/29/24 16:04 d paroxetine (From Paxil) AdvReac diarrhea, Verified 11/29/24 16:04 nausea, vomiting Review of Systems Const: Denies: fever(s), chills, body aches, fatigue or malaise Card: Denies: chest pain Resp: Denies: dyspnea Musc: Reports: back pain (chronic-at baseline), joint pain (Bilateral shoulders) and limited range of motion (bilateral shoulders); Denies: neck pain, extremity pain, extremity swelling, joint swelling, joint redness, joint warmth, muscle cramps, muscle weakness or deformity Neuro: Denies: headache(s), numbness in extremities, weakness in extremities, sensory changes or difficulty walking [facility] PFSH: Medical History Migraines Surgical History History of tubal ligation History of cholecystectomy Family History Mother Depression Sister Depression Thyroid disease Social History Smoking and tobacco/nicotine status: unknown if used tobacco/nicotine Physical Exam Const: COMMON NORMALS: no acute distress, average body habitus, patient oriented x3, no limitations, healthy appearing, alert and well nourished HENMT: COMMON NORMALS: normocephalic and atraumatic HEAD & SCALP: normal to inspection, normocephalic and atraumatic Neck/C-Spine: COMMON NORMALS: full ROM GENERAL: Yes normal visual inspection CERVICAL SPINE: Yes cervical ROM normal, No pain with cervical ROM, No Cervical spine tenderness, No step off deformity, No Paracervical muscle tenderness, No Paracervical spasm, No Trapezius muscle tenderness and No Lhermitte's sign positive Chest: COMMONS NORMALS: normal inspection of the chest and normal palpation of entire chest wall Resp: COMMON NORMALS: normal respiratory effort Cardio: COMMON NORMALS: regular rate and regular rhythm RATE: regular rate RHYTHM: regular rhythm Back/Pelvis: COMMON NORMALS: thoracic and lumbar spine normal to inspection, no thoracic nor lumbar tenderness, thoraco-lumbar ROM normal and straight leg raise negative bilaterally Extremity: COMMON NORMALS: normal to inspection, capillary refill normal, no joint enlargement and no clubbing, cyanosis or edema GENERAL: Yes normal exam except as noted RIGHT UPPER EXTREMITY: Yes shoulder joint (TTP anterior joint line) Right shoulder: Yes Right shoulder joint inspection exam (normal gross inspection), Yes palpation, Yes Right shoulder joint ROM exam (Limited due to pain) and Yes Right shoulder joint neurovascular exam (normal) LEFT UPPER EXTREMITY: Yes shoulder joint Left shoulder joint: Yes inspection (normal gross inspection), Yes palpation (Tenderness to anterior joint line), Yes ROM (Limited due to pain) and Yes neurovascular exam (normal) Neuro: COMMON NORMALS: patient oriented x3, moves all extremities, no focal motor deficits and no sensory deficits noted SENSORIUM/ORIENTATION: Yes alert Course Vital Signs: Vital signs: Vital Signs Temperature 98.1 F 11/29/24 16:02 Pulse Rate 78 11/29/24 16:02 Respiratory Rate 18 11/29/24 16:37 Blood Pressure 126/70 11/29/24 16:20 Pulse Oximetry 96 11/29/24 16:20 Oxygen Delivery Me thod Room Air 11/29/24 16:02 MDM - Extremity (Nontraumatic) Medical Decision Making Patient is a 34-year-old female here for identical bilateral shoulder pain over the past 2 days. 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 Unknown whether this could be etiology for her symptoms. Extremities are NV intact. No obvious abnormalities noted clinically. XRs felt to be unnecessary as it would be unlikely to exchange operator. Will treat conservatively and she can follow-up with PCP on as she already has an appointment scheduled. Medical Records I reviewed the patient's medical records. No radiology studies performed this visit Discharge Plan Discharge Patient Disposition: Home Clinical Impression: Acute pain of both shoulders Condition: Stable Prescriptions: New prednisone 10 mg tablet 10 mg PO DAILY 6 Days Qty: 20 0RF Rx Instructions: Take 5 tabs on day 1-2, 4 tabs on day 3, 3 tabs on day 4, 2 tabs on day 5, and 1 tab on day 6 No Action albuterol sulfate 90 mcg/actuation HFA aerosol inhaler 2 puff inhalation Q4H PRN (Reason: Shortness Of Breath Or Wheezing) budesonide-formoterol [Symbicort] 160-4.5 mcg/actuation HFA aerosol inhaler 2 puff inhalation BID hydrocodone-acetaminophen 10-325 mg tablet 1 tab PO Q6H PRN (Reason: SCIATIC PAIN) acetaminophen [Tylenol Extra Strength] 500 mg Tablet 500 - 1,000 mg PO PRN PRN (Reason: Fever Or Pain) Excedrin Migraine 250-250-65 mg Tablet 1 tab PO PRN rizatriptan 10 mg tablet 10 mg PO PRN PRN (Reason: Migraine Headache) baclofen 20 mg tablet 20 mg PO TID buspirone 15 mg tablet 15 mg PO TID promethazine 25 mg tablet 25 mg PO Q6H PRN (Reason: nausea and vomiting) Qty: 20 0RF sumatriptan succinate 100 mg tablet See Rx Instructions .ROUTE .COMPLEX Rx Instructions: TAKE 1 TABLET BY MOUTH AT ONSET OF MIGRAINE. MAY REPEAT IN 2 HOURS MAX DOSE 2 TABLETS IN 24 HOURS venlafaxine 150 mg capsule,extended release 24hr 150 mg PO DAILY Emgality Pen 120 mg/mL pen injector 120 mg SUBCUT Q28D Discharge Orders: Discharge ED (Routine); Ordered 11/29/24 Ordered By: Samira Laguerre Referrals: Christina Arambula DO [Primary Care Provider, Family Practice] Patient Instructions: Patient Portal & Jordan Instructions Activity Restrictions/Additional Instructions: As we discussed, you can continue your Zanaflex muscle relaxer. I would like you to start taking an kpkp-plu-rqmujhn anti-inflammatory such as Ibuprofen or Aleve. Will place you on steroids. You can also try ice and heat as well as topical therapies. Please follow-up with primary care on as scheduled. Print Language: Icelandic Coding Level of Care Code ED Shoe Stock Associate for Marbin Dumas
[2024-11-29 16:20] VITALS: BP 126/70; O2SAT 96
[2024-11-29 16:37] VITALS: RESP 18
[2024-11-29] MEDS: orphenadrine 30 mg/mL Inj 2 mL 60 MG IM (16:37)
[2024-11-29] MEDS: morphine 4 mg/mL SDV 1 mL IM (16:37)
[2024-11-29 17:00] VITALS: BP 148/83; PULSE 66; RESP 18; O2SAT 95
== END 2024-11-29 17:01 | disposition home or self-care (01) ==
PROVIDERS: Emergency Provider Physician Assistant; PCP Family Medicine
DX: M25.512 Pain in left shoulder (principal); M25.511 Pain in right shoulder
CPT/HCPCS: 96372; 99284; J1100; J2270; J2360

== ENCOUNTER 2024-12-20 16:30 | Emergency (ER) | payer MEDICAID, SELFPAY ==
--- OUTSIDE RECORDS SUMMARY | 2024-12-20 16:35 | XMS_ITS | Encounter Summary ---
Author Organization [facility] Address [address] [place] [address] Care Team Providers Care Impregnator Carbon Products Name Role Phone TyeshaChristina barr DO Primary Care Provider [phone] Reason for Visit * Reason Comments Med Refill Encounter Details Date Type Department Care Team (Late Contact Info) Description 12/20/2024 Refill [facility] [address] [place] [address] Christina Arambula DO [address] [place] [address] Chronic midline low back pain with bilateral sciatica Social History Tobacco Use Types Packs/Day Years Used Date Smoking Tobacco: Every Day Cigarettes 1 14 Passive Smoke Exposure: Current Smokeless Tobacco: Never Alcohol Use Standard Drinks/Week Comments No 0 (1 standard drink = 0.6 oz pur e alcohol) Feeling Safe Answer Date Recorded Are you in a relationship wi th someone who hurts you emotionally and/or physically? 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 Legal Sex Female 9:02 AM QUALITY ASSURANCE MONITOR BODY Gender Identity Female 04/14/2024 3:41 PM QUALITY ASSURANCE MONITOR BODY Sexual Orientation Straight 04/14/2024 3: 41 PM QUALITY ASSURANCE MONITOR BODY documented as of this encounter Plan of Treatment Upcoming Encounters Date Type Department Care Team (Late Contact Info) Description 03/07/2025 12:00 PM QUALITY ASSURANCE MONITOR BODY Office Visit [facility] [address] [place] [address] July, [facility] [address] [place] [facility] [place] [facility] [address] 03/07/2025 3:40 PM QUALITY ASSURANCE MONITOR BODY Office Visit [facility] [address] [facility] [place] [address] July, [facility] [address] [place] [facility] [place] [facility] [address] 06/08/2025 11:20 AM QUALITY ASSURANCE MONITOR BODY Office Visit [facility] [address] [facility] [place] [phone] Christina Arambula DO [address] [place] [address] documented as of this encounter Visit Diagnoses Diagnosis Chronic midline low back pain with bilateral sciatica documented in this encounter Additional Health Concerns Assessment Noted Time PHQ-9 Depression Total Score: 1 05/14/19 25 10:00 AM QUALITY ASSURANCE MONITOR BODY documented as of this encounter Care Teams Impregnator Carbon Products Relationship Specialty Start Date End Date Christina Arambula DO [address] [place] [address] PCP - General 07/25/20 documented as of this encounter
--- OUTSIDE RECORDS SUMMARY | 2024-12-20 16:35 | XMS_ITS | Clinical Summary ---
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 08/25/2020 4:59 PM CDT [facility] COMMENT This Pap test has been evaluated with computer assisted technology. 08/25/2020 4:59 PM CDT [facility] TUG CAPTAIN: SEE COMMENT 2020 4:59 PM CDT [facility] Comment: MEF, CT(ASCP) CT screening location: [place] [address] [place] [address] EXPLANATORY NOTE SEE COMMENT 021 4:59 PM CDT [facility] Comment: EXPLANATORY NOTE: The Pap is a [...] Detected Not Detected 08/25/2020 4:59 PM CDT [facility] Comment: Methodology: Powder Worker-Mediated Amplification This assay detects E6/E7 viral messenger RNA (mRNA) from 14 high-risk HPV types (16,18,31,33,35,39,45,51,52,56,58,59,66,68). The analytical performance characteristics of this assay have been determined by [employer]. The modifications have not been cleared or approved by the FDA. This assay has been validated pursuant to the CLIA regulations and is used for clinical purposes. For additional information, please refer to http://education.Unblab.LikeBright/faq/AHF451q4 (This link if provided for information/ educational purposes only.) Genital SWAB OF ENDOCERVIX / Unknown Collection / Unknown 08/21/2020 4:44 PM CDT 08/21/2020 8:43 PM CDT Narrative [facility] - 08/25/2020 4:59 PM CDT Performing Organization Information: Site ID: [id number] Name: [facility] Address: [address] [address] Director: Damian Otero D.O., MPH Site ID: [id number] Name: [facility] Address: [address] [place] [address] Director: Murray Hopson us Christina Arambula DO PATHOLOGY/CYTOLOGY ORDERABL ES Final Result [facility] from Last 3 Months or Most Recently Relevant to Health Maintenance Insurance [facility] [place] Care Teams Public Address Technician Relationship Specialty Start Date End Date hCristina Arambula DO [address] [place] [address] PCP - General Family Practice 03/06/18
--- OUTSIDE RECORDS SUMMARY | 2024-12-20 16:35 | XMS_ITS | Clinical Summary ---
Author Organization [facility] Address [address] [place] [address] Care Team Providers Care Construction Estimator Name Role Phone Christina Arambula DO Primary Care Provider [phone] Allergies Active Allergy Reactions Criticality Noted Date [...] SHORTNESS OF BREATH OR WHEEZING 8.5 Gram 025 Active SUMAtriptan (Imitrex) 100 mg tablet Take one tablet at onset of migraine. may repeat in 2 hours; max dose 200mg in 24 hours 12 Tablet 025 Active rizatriptan (MAXALT) 10 mg Tablet TAKE 1 TABLET BY MOUTH EVERY 2 HOURS NEEDED FOR MIGRAINE. MAXIMUM DOSE OF 20MG 9 Tablet 025 Active SUMAtriptan (IMITREX) 50 mg tablet TAKE ONE TABLET BY MOUTH EVERY TWO hours as needed for headaches MAY REPEAT in TWO hours max DAILY AMOUNT of TWO TABLETS 9 Tablet 6 025 Active budesonide-form oteroL (SYMBICORT) 160-4.5 mcg/actuation HFA Aerosol Inhaler Take 2 Puffs by inhalation 2 times daily. 10.2 Gram 025 Active galcanezumab-gn lm (Emgality Pen) 120 mg/mL Pen InjectorIndicat ions:Migraine without aura and without status migrainosus, not intractable Inject 1 mL by subcutaneous injection every 28 days. 1 mL 11 Active HYDROcodone-cristian taminophen (NORCO) 10-325 mg TabletIndicatio ns:Chronic midline low back pain with bilateral sciatica Take 1 Tablet by mouth every 6 hours as needed for Pain, Moderate. Do not fill until 12/02/2024 Max Daily Amount: 4 Tablets 120 Tablet Active hydrOXYzine HCL (ATARAX) 10 mg tabletIndicatio ns:Anxiety Take 1 Tablet (10 mg) by mouth 3 times daily as needed for Anxiety. 90 Tablet Active desvenlafaxine (PRISTIQ) 50 mg Extended Release 24 hour tabletIndicatio ns:Recurrent major depressive disorder, in partial remission Take 1 Tablet (50 mg) by mouth daily with breakfast. 30 Tablet 2 Active tiZANidine (ZANAFLEX) 4 mg TabletIndicatio ns:Chronic midline low back pain with bilateral sciatica TAKE ONE TABLET BY MOUTH THREE TIMES DAILY NEEDED FOR spasm. 90 Tablet 2 Active tiZANidine (ZANAFLEX) 4 mg Tablet Take 1 Tablet (4 mg) by mouth 3 times daily as needed for Spasm. 90 Tablet 2 025 2024 Discontinued(D ose/form adjustment) HYDROcodone-cristian taminophen (NORCO) 10-325 mg TabletIndicatio ns:Chronic midline low back pain with bilateral sciatica Take 1 Tablet by mouth every 6 hours as needed for Pain, Moderate. Max Daily Amount: 4 Tablets 120 Tablet 025 2024 Discontinued HYDROcodone-cristian taminophen (NORCO) 10-325 mg TabletIndicatio ns:Chronic midline low back pain with bilateral sciatica Take 1 Tablet by mouth every 6 hours as needed for Pain, Moderate. Do not fill until 10/02/2024 Max Daily Amount: 4 Tablets 120 Tablet 025 2024 Discontinued HYDROcodone-cristian taminophen (NORCO) 10-325 mg TabletIndicatio ns:Chronic midline low back pain with bilateral sciatica Take 1 Tablet by mouth every 6 hours as needed for Pain, Moderate. Do not fill until 11/01/2024 Max Daily Amount: 4 Tablets 120 Tablet 025 2024 Discontinued venlafaxine (EFFEXOR XR) 150 mg Extended Release 24 hour capsule Take 1 Capsule (150 mg) by mouth daily. 90 Capsule 3 025 2024 Discontinued(A lternate therapy prescribed) busPIRone (BUSPAR) 15 mg TabletIndicatio ns:Depression with anxiety TAKE ONE TABLET BY MOUTH THREE TIMES DAILY NEEDED FOR ANXIETY 90 Tablet 3 025 2024 Discontinued(A lternate therapy prescribed) tiZANidine (ZANAFLEX) 6 mgIndications:C hronic midline low back pain with bilateral sciatica Take 1 Capsule (6 mg) by mouth 3 times daily as needed for Pain. 90 Capsule 3 025 2024 Discontinued(D ose/form adjustment) tiZANidine (ZANAFLEX) 4 mg TabletIndicatio ns:Chronic midline low back pain with bilateral sciatica Take 1 Tablet (4 mg) by mouth every 6 hours as needed for Spasm. 120 Tablet 2 025 2024 Discontinued venlafaxine (EFFEXOR XR) 37.5 mg Extended Release 24 hour capsuleIndicati ons:Recurrent major depressive disorder, in partial remission Take 2 Capsules (75 mg) by mouth daily for 7 days, THEN 1 Capsule (37.5 mg) daily for 7 days. THEN discontinue. 21 Capsule 025 2024 Active Problems Problem Noted Date Diagnosed Date [...] 017 JOANNA I (cervical intraepithelial neoplasia I) 01/26/2017 Overview (08/23/2020): 01/04 by colposcopy HPV (human papillomavirus) 02/22/2009 1 Encounters Date Type Department Care Team Description 12/20/[address] [facility] [address] [place] [address] Christina Arambula, Chronic midline low back pain with bilateral sciatica 12/15/2024 External Device Data STL ABSTRACTION Provider, Abstract 12/03/[address] [facility] [address] [place] [address] July, PRODUCTION WELDER Recurrent major depressive disorder, in partial remission (Primary Dx) 12/03/[address] [facility] [address] [place] [address] Zhou, July, PRODUCTION WELDER Chronic midline low back pain with bilateral sciatica (Primary Dx) 12/02/2024 3:40 PM CDT Video Visit [facility] [address] [place] [address] July, PRODUCTION WELDER Anxiety (Primary Dx); Recurrent major depressive disorder, in partial remission; Chronic midline low back pain with bilateral sciatica 12/02/[address] [facility] [address] [place] [address] July, PRODUCTION WELDER Chronic midline low back pain with bilateral sciatica 11/30/[address] 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 [address] [place] [address] Christina Arambula, DO Medication Assistance 11/12/2024 [facility] [address] [place] [address] Winnie, July, PRODUCTION WELDER Depression with anxiety 10/25/2024 [facility] [address] [place] [address] Christina Arambula, Migraine without aura and without status migrainosus, not intractable (Primary Dx) 10/13/2024 External Device Data STL ABSTRACTION Provider, Abstract 09/21/2024 [facility] [address] [place] [address] Christina Arambula DO 09/21/2024 Telephone [place] [address] [place] [address] Christina Arambula, Medication Review from Last 3 Months Immunizations Immunization Administration [...] Sex Assigned at Female 04/14/2024 3:41 PM SOIL CHECKER Legal Sex Female 9:02 AM SOIL CHECKER Gender Identity Female 04/14/2024 3:41 PM SOIL CHECKER Sexual Orientation Straight 04/14/2024 3: 41 PM SOIL CHECKER Last Filed Vital Signs Vital Sign Reading Time Taken Comments Blood Pressure 132/70 09/01/2024 2:59 PM CDT Pulse 113 09/01/2024 2:59 PM CDT Temperature 37 C (98.6 F) 09/01/2024 2:59 PM CDT Respiratory Rate 18 05/14/2024 10:09 AM SOIL CHECKER Oxygen Saturation 97% 09/01/2024 2:59 PM CDT Inhaled Oxygen Concentration - - Weight 76.2 kg (168 lb) 12/02/2024 3:43 PM CDT Height 154.9 cm (5' 1 ) 12/02/2024 3:43 PM CDT Body Mass Index 31.74 12/02/2024 3:43 PM CDT Plan of Treatment Upcoming Encounters Date Type Department Care Team (Late st Contact Info) Description 03/07/2025 12:00 PM SOIL CHECKER Office Visit [facility] [address] [place] [facility] [place] [address] July, PRODUCTION WELDER[address] [place] [facility] [place] [address] 03/07/2025 3:40 PM SOIL CHECKER Office Visit [facility] [address] [place] [facility] [place] [address] July, [place] [place] [address] 06/08/2025 11:20 AM SOIL CHECKER Office Visit [facility] [address] [place] [facility] [place] [address] Christina Arambula, DO [address] [place] [facility] [place] [place] [phone] Health Maintenance Due Date Last Done Comments HPV VACCINES (1 - 3-dose series) 2005 HEPATITIS B VACCINES (1 of 3 - 19+ 3-dose series) 2009 Preventative Visit-Managed Medicaid 12/26/2023 12/24/2022, 08/21/2020, 09/28/2018, Additional history exists INFLUENZA VACCINE (#1) 2024 , 04/24/2023, 01/11/2021, Additional history exists PAP SMEAR 12/24/2025 12/24/2022, 07/28, 08/21/2020, Additional history exists DTAP/TDAP/TD VACCINES (2 [...] W/HPV (12/24/2022 10:56 AM CDT) CLINICAL INFORMATION [facility] Comment:None given LAST MENSTRUAL PERIOD [facility] Comment:NONE GIVEN PREV PAP: [facility] Comment:NONE GIVEN PREV BX: [facility] Comment:NONE GIVEN SOURCE [facility] Comment:ENDOCERVIX ADEQUACY: [facility] Comment: Satisfactory for evaluation. Endocervical/transformation zone component absent. Age and/or menstrual status not provided PAP INTERP [facility] Comment: Cytology Results: Negative for intraepithelial lesion or malignancy. CYTOLOGY INFECTION [facility] [place] Comment: Shift in vaginal sagar suggestive of bacterial vaginosis. COMMENT (PAP TEST) [facility] Comment: This case could not be evaluated with computer assisted technology. The slide was manually screened according to routine procedures. NETWORK SYSTEMS ENGINEER: SemantriaDionne Owen Comment: BKA, CT(ASCP) CT screening location: [place] [address] [place] [address] REVIEW NETWORK SYSTEMS ENGINEER: coramaze technologiesDionne Owen Comment: KMS, CT(ASCP) CT Screening location: [place] [address] [address] Garcia [facility] EXPLANATORY NOTE Que VelottonDionne Owen Comment: EXPLANATORY NOTE: The Pap is [...] information. HPV E6/E7 Not Detected Not Detected [employer] Comment: Methodology: Health Navigator-Mediated Amplification This assay detects E6/E7 viral messenger RNA (mRNA) from 14 high-risk HPV types (16,18,31,33,35,39,45,51,52,56,58,59,66,68). Cervical sources are required for HPV testing. If a vaginal source from a patient who has had a total hysterectomy with removal of cervix was submitted, please contact the testing laboratory for alternative testing options. For additional information, please refer to http://education.[employer]/faq/CQH597l0 (This link if provided for information/ educational purposes only.) Test Performed at: [facility] [address] [place] [address] Murray MEHTA Genital SWAB OF ENDOCERVIX / Unknown 12/24/2022 10:56 AM CDT 12/25/2022 6:15 AM CDT us Christina Arambula DO PATHOLOGY/CYTOLOGY ORDERABL ES Final Result [facility] [phone] [facility] [address] [place] [phone] from Last 3 Months or Most Recently Relevant to Health Maintenance [place] [address] [place] [address] [employer] MEDICAID Care Teams Construction Estimator Relationship Specialty Start Date End Date Christina Arambula DO [address] [place] [phone] PCP - General 07/25/20
--- OUTSIDE RECORDS SUMMARY | 2024-12-20 16:35 | XMS_ITS | Encounter Summary ---
Author Organization [facility] Address [address] [place] [address] Care Team Providers Care Store Operations Manager Name Role Phone Christina Arambula DO Primary Care Provider [phone] Encounter Details Date Type Department Care Team (Late Contact Info) Description 12/15/2024 External Device Data STL ABSTRACTION Provider, Abstract NO ADDRESS ON FILE Social History Tobacco Use Types Packs/Day Years [...] Sex Assigned at Female 04/14/2024 3:41 PM WILLOW ANALYST Legal Sex Female 9:02 AM WILLOW ANALYST Gender Identity Female 04/14/2024 3:41 PM WILLOW ANALYST Sexual Orientation Straight 04/14/2024 3: 41 PM WILLOW ANALYST documented as of this encounter Plan of Treatment Upcoming Encounters Date Type Department Care Team (Late st Contact Info) Description 03/07/2025 12:00 PM WILLOW ANALYST Office Visit [facility] [address] [place] [address] July, PHYSICAL EDUCATION TEACHER [address] [facility] [place] [address] 03/07/2025 3:40 PM WILLOW ANALYST Office Visit [facility] [address] [place] [facility] [place] [phone] Zhou, July, PHYSICAL EDUCATION TEACHER [address] [facility] [place] [address] 06/08/2025 11:20 AM WILLOW ANALYST Office Visit [facility] [address] [place] [facility] [address] Christina Arambula DO [address] [place] [address] documented as of this encounter Visit Diagnoses Not on filedocumented in this encounter Additional Health Concerns Assessment Noted Time PHQ-9 Depression Total Score: 1 05/14/19 25 10:00 AM WILLOW ANALYST documented as of this encounter Care Teams Store Operations Manager Relationship Specialty Start Date End Date Christina Arambula DO [address] [place] [address] PCP - General 07/25/20 documented as of this encounter
--- OUTSIDE RECORDS SUMMARY | 2024-12-20 16:35 | XMS_ITS | Encounter Summary ---
Author Organization [facility] Address [address] [place] [address] Care Team Providers Care Health Equipment Servicer Name Role Phone Christina Arambula Lulu ALVAREZ [...] GEST Shazia Croft MD Phone: tel: fax: [facility] Ultrasound [place] [address] [place] [address] Phone: tel: fax: Referral ID Status Reason Start Date Expiration Date V isits Requested Visits Authorized [id number] Closed [facility] CTS to Schedule (SGF) 03/15/2017 04/15/2018 1 1 UTATOR PRESSER Encounter Details Date Type Department Care Team (Late st Contact Info) Description 04/24/2017 Ancillary Orders [facility] [address] [place] [phone] Shazia Croft MD [address] [place] [address] Supervision of high risk in [...] on file Legal Sex Female 7:29 AM COMMUTATOR PRESSER Gender Identity Not on file Sexual Orientation Not on file documented as of this encounter Plan of Treatment Not on file documented as of this encounter Results * US OB LESS THAN 14 WKS SINGLE + TRANSVAG (04/24/2017 11:31 AM COMMUTATOR PRESSER) Anatomical Region Laterality Modality Pelvis Ultrasound 04/24/2017 11:3 1 AM COMMUTATOR PRESSER Impressions 04/24/2017 3:52 PM COMMUTATOR PRESSER IMPRESSION Findings Comment Gestational age is in agreement with established dating abnormalities are not identified But incomplete assessment: lip, nose, LVOT Suspected Cervical shortening not found Cervical lenght 4.35 cm with no funneling present Narrative 04/24/2017 3:52 PM COMMUTATOR PRESSER Boby Complete >14 Pat. Name: EVELYN PATEL Study Date: 04/24/2017 11:31am Pat. NO: [id number] Referring MD: Site: [place] Aircraft Assembler: Evita Christensen RDMS : 1990 Age: 27 INDICATION Screening for Malformations by US to include cercival lenght. hx of labor CODING Diagnosis Z36: Screening for Malformations by US. Procedures 78454: OBUS > 14 weeks. 09441: OB Transvaginal. HISTORY OB History : 3. [...] 0 lb oz 14 Calculated by [employer] ([id number]) Proportionality Ratios: HC / AC 1.12 24% [...] Procedure Note Jerrod Varela MD - 04/24/2017 [place] Complete >14 Pat. Name:Laura PATEL Date:04/24/2017 11:31am Pat. NO: [id number] MD: Site:[place]:Evita Christensen RDMS :1990Age:27 INDICATION Screening for Malformations by US to include cercival lenght. hx of labor CODING Diagnosis Z36: Screening for Malformations by US. Procedures 02007: OBUS > 14 weeks. 91935: OB Transvaginal. HISTORY OB History : 3. [...] 0 lb oz 14 Calculated by [employer] ([id number]) Proportionality Ratios: HC / AC 1.12 24% [...] documented as of this encounter Care Teams Health Equipment Servicer Relationship Specialty Start Date End Date Christina Arambula DO [address] [place] [address] PCP - General Family Practice 03/06/18 documented as of this encounter
--- OUTSIDE RECORDS SUMMARY | 2024-12-20 16:36 | XMS_ITS | Encounter Summary ---
Author Organization [facility] Address [address] [place] [address] Care Team Providers Care Charge Gang Weigher Name Role Phone Christina Arambula Primary Care Provider Encounter Details Date Type Department Care Team (Late st Contact Info) Description 01/30/2015 Lab Requisition [facility] [place] [address] [place] [address] Tru oGmez NP [facility] [place] [address] Sick Social History Tobacco Use Types Packs/Day Years Used Date Smoking Tobacco: Every Day Cigarettes Alcohol Use Standard Drinks/Week Comments No 0 (1 standard drink = 0.6 oz pur e alcohol) Comments No Sex and Gender Information Value Date Recorded Sex Assigned at Not on file Legal Sex Female 7:29 AM POST FORM REMOVER Gender Identity Not on file Sexual Orientation [...] - 4.20 uIU/mL 01/30/2015 10:56 PM CDT [facility] [place] Blood Collection / Unknown 01/30/2015 9:49 PM CDT 01/30/2015 9:49 PM CDT Tru Gomez NP CHEMISTRY ORDERABLES Final Resu lt [facility] [place] CLIA # [id number] [address] [place] [address] * (ABNORMAL) CBC WITH DIFFERENTIAL (01/30/2015 9:49 PM CDT) WBC 8.1 4.0 - 10.0 K/uL 01/30/2015 10:09 PM T [email or web address] [place] RBC 5.22 3.93 - 5.22 M/uL 01/30/2015 10:09 PM CDT [email or web address] [place] HEMOGLOBIN 15.4 11.2 - 15.7 g/dL 01/30/2015 10:09 PM CDT [email or web address] [place] HEMATOCRIT 44.1 34.1 - 44.9 % 01/30/2015 10:09 PM CDT [email or web address] [place] MCV 84.5 79.4 - 94.8 fL 01/30/2015 10:09 PM CDT [email or web address] [place] MCH 29.5 25.6 - 32.2 pg 01/30/2015 10:09 PM CDT [facility] [place] MCHC 34.9 32.2 - 35.5 g/dL 01/30/2015 10:09 PM CDT [email or web address] [place] RDW 13.5 11.0 - 14.5 % 01/30/2015 10:09 PM CDT [email or web address] [place] RDW-STDEV 41.9 36.9 - 56.9 fL 01/30/2015 10:09 PM CDT [email or web address] [place] PLATELETS 296 163 - 337 K/uL 01/30/2015 10:09 PM CDT [facility] [place] MPV 10.9 10.0 - 14.8 fL 01/30/2015 10:09 PM CDT [facility] [place] NEUTROPHILS 40 34 - 71 % 01/30/2015 10:09 PM CDT [facility] [place] LYMPHOCYTES 47 19 - 52 % 01/30/2015 10:09 PM CDT [facility] [place] MONOCYTES 9 5 - 13 % 01/30/2015 10:09 PM CDT [facility] [place] EOSINOPHILS 3 1 - 6 % 01/30/2015 10:09 PM CDT [facility] [place] BASOPHILS 1 0 - 1 % 01/30/2015 10:09 PM CDT [facility] [place] NEUTROPHIL ABSOLUTE 3.27 1.56 - 6.13 K/uL 01/30/2015 10:09 PM CDT [facility] [place] LYMPHOCYTE ABSOLUTE 3.79(H) 1.20 - 3.40 K/uL 01/30/2015 10:09 PM CDT [facility] [place] MONOCYTE ABSOLUTE 0.72(H) 0.24 - 0.36 K/uL 01/30/2015 10:09 PM CDT [facility] [place] EOSINOPHIL ABSOLUTE 0.24 0.04 - 0.36 K/uL 01/30/2015 10:09 PM CDT [facility] [place] BASOPHILS ABSOLUTE 0.06 0.01 - 0.08 K/uL 01/30/2015 10:09 PM CDT [facility] [place] IMMATURE GRANULOCYTES 0 % 01/30/2015 10:09 PM CDT [facility] [place] IMMATURE GRANULOCYTES ABSOLUTE 0.03 K/uL 01/30/2015 10:09 PM CDT [facility] [place] Blood Collection / Unknown 01/30/2015 9:49 PM CDT 01/30/2015 9:49 PM CDT us Tru Gomez NP HEMATOLOGY ORDERABLES Final Res ult [facility] [place] CLIA # [id number] [address] [place] [address] * BASIC METABOLIC PANEL (01/30/2015 9:49 PM CDT) SODIUM 136 136 - 145 mmol/L 01/30/2015 10:56 PM CDT [facility] [place] POTASSIUM 3.6 3.5 - 5.1 mmol/L 01/30/2015 10:56 PM CDT [facility] [place] CHLORIDE 100 98 - 107 mmol/L 01/30/2015 10:56 PM CDT [facility] [place] CO2 23 22 - 29 mmol/L 01/30/2015 10:56 PM CDT [facility] [place] CALCIUM 9.2 8.6 - 10.0 mg/dL 01/30/2015 10:56 PM CDT [facility] [place] BUN 9 6 - 20 mg/dL 01/30/2015 10:56 PM T [facility] [place] CREATININE 0.56 0.51 - 0.95 mg/dL 01/30/2015 10:56 PM CDT [facility] [place] GLUCOSE 77 74 - 106 mg/dL 01/30/2015 10:56 PM T [facility] [place] GFR >60 >=60 mL/min/1.7 3 sq meter 01/30/2015 10:56 PM T [facility] [place] Comment: eGFR has not been validated [...] 3 sq meter 01/30/2015 10:56 PM CDT [facility] [place] ANION GAP 13 12 - 20 mmol/L 01/30/2015 10:56 PM CDT [facility] Blood Collection / Unknown 01/30/2015 9:49 PM CDT 01/30/2015 9:49 PM CDT Tru Gomez COLLECTIONS REPRESENTATIVE CHEMISTRY ORDERABLES Final Resu lt [facility] [place] CLIA # [id number] [address] [place] [address] documented in this encounter Visit Diagnoses Diagnosis Sick Other unknown and unspecified cause of morbidity or mortality documented in this encounter Additional Health Concerns Infection Onset Date Last Indicated Resolved Time R/O COVID-19 07/27/2020 07/27/2020 07/28/2020 2:04 PM CDT documented as of this encounter Care Teams Charge Gang Weigher Relationship Specialty Start Date End Date Christina Arambula DO [address] [place] [phone] PCP - General Family Practice 03/06/18 documented as of this encounter
[2024-12-20 16:47] VITALS: BP 131/84; PULSE 79; RESP 18; TEMP 36.8; O2SAT 95; BMI 34.0
--- NOTE | 2024-12-20 16:55 | W.ED.HA ---
HPI - Headache General: Chief Complaint: Headache Stated Complaint: headachs Time Seen by Provider: 12/20/24 16:55 History of Present Illness: 34-year-old female who presents emergency room with a migraine headache that has been intractable for almost 3 days now. She is taking both of her abortive medications with no help. She also was late on her preventative medication. She is having photophobia, phonophobia, blurred vision, nausea and vomiting last night. She says this is typical for her migraines. No new neurologic symptoms. No fevers. No altered mental status. No focal motor deficits. Related Data Home Medications ?Medication ?Instructions ?Recorded ?Confirmed acetaminophen 500 mg tablet 500 - 1,000 mg PO PRN PRN Fever Or 09/22/19 07/13/24 (Tylenol Extra Strength) Pain vrjgzww-fhdtigqhzjvdy-smlpcrex 250 1 tab PO PRN 09/22/19 07/13/24 mg-250 mg-65 mg tablet (Excedrin Migraine) albuterol sulfate 90 mcg/actuation 2 puff inhalation Q4H PRN 06/24/23 07/13/24 aerosol inhaler Shortness Of Breath Or Wheezing budesonide-formoterol HFA 160 2 puff inhalation BID 06/24/23 07/13/24 mcg-4.5 mcg/actuation aerosol inhaler (Symbicort) hydrocodone 10 mg-acetaminophen 1 tab PO Q6H PRN SCIATIC PAIN 10/05/23 07/13/24 325 mg tablet galcanezumab-gnlm 120 mg/mL 120 mg SUBCUT Q28D 05/26/24 07/13/24 subcutaneous pen injector (Emgality Pen) sumatriptan succinate 100 mg tablet See Rx Instructions .Route .COMPLEX 05/26/24 07/13/24 venlafaxine 150 mg 150 mg PO DAILY 05/26/24 07/13/24 capsule,extended release 24 hr baclofen 20 mg tablet 20 mg PO TID 07/13/24 07/13/24 buspirone 15 mg tablet 15 mg PO TID 07/13/24 07/13/24 rizatriptan 10 mg tablet 10 mg PO PRN PRN Migraine Headache 07/13/24 07/13/24 Previous Rx's ?Medication ?Instructions ?Recorded promethazine 25 mg tablet 25 mg PO Q6H PRN nausea and 07/13/24 vomiting #20 tabs Allergies Allergy/AdvReac Type Severity Reaction Status Date / Time ketorolac (From Toradol) AdvReac ADR-Agitate Verified 12/20/24 16:53 d paroxetine (From Paxil) AdvReac diarrhea, Verified 12/20/24 16:53 nausea, vomiting tramadol AdvReac ADR-Agitate Verified 12/20/24 16:53 d Review of Systems Narrative: Constitutional symptoms: Negative except as documented in HPI. Skin symptoms: Negative except as documented in HPI. Eye symptoms: Negative except as documented in HPI. ENMT symptoms: Negative except as documented in HPI. Respiratory symptoms: Negative except as documented in HPI. Cardiovascular symptoms: Negative except as documented in HPI. Gastrointestinal symptoms: Negative except as documented in HPI. Genitourinary symptoms: Negative except as documented in HPI. Musculoskeletal symptoms: Negative except as documented in HPI. Neurologic symptoms: Negative except as documented in HPI. Psychiatric symptoms: Negative except as documented in HPI. Endocrine symptoms: Negative except as documented in HPI. PFSH ED PFSH: Medical History (Updated 12/20/24 @ 17:03 by Fabi Hudson MD) Migraines Surgical History History of tubal ligation History of cholecystectomy Family History Mother Depression Sister Depression Thyroid disease Social History Smoking and tobacco/nicotine status: unknown if used tobacco/nicotine Physical Exam Narrative: EXAM NARRATIVE: General: Alert, patient has some sunglasses and appears to not feel well. Skin: warm and dry Head: Normocephalic Neck: Trachea midline Eye: Extraocular movements are intact. Ears, nose, mouth and throat: Tacky oral mucosa Respiratory: Respirations are non-labored Musculoskeletal: Normal ROM Gastrointestinal: Abdomen does not appear distended Neurological: Alert and oriented, No focal neurological deficit observed. Psychiatric: Cooperative, appropriate mood & affect. Course Vital Signs: Vital signs: Vital Signs Temperature 98.2 F 12/20/24 16:47 Pulse Rate 67 12/20/24 17:18 Respiratory Rate 18 12/20/24 16:47 Blood Pressure 131/84 12/20/24 16:47 Pulse Oximetry 96 12/20/24 17:18 Oxygen Delivery Me thod Room Air 12/20/24 17:18 MDM - Headache Medical Decision Making Assessment and plan: Migraine headache - 50 mg IV Benadryl - No Toradol as patient has an allergy. - 10 mg IV Reglan - 8 mg IV Zofran - 60 mg IV Norflex - 1 L normal saline bolus - Discharged home - Discussed plan with patient. Answered any questions. - Evaluation and treatment of this problem were appropriate in the emergency setting. No radiology studies performed this visit Discharge Plan Discharge Patient Disposition: Home Clinical Impression: Migraine Condition: Stable Prescriptions: No Action albuterol sulfate 90 mcg/actuation HFA aerosol inhaler 2 puff inhalation Q4H PRN (Reason: Shortness Of Breath Or Wheezing) budesonide-formoterol [Symbicort] 160-4.5 mcg/actuation HFA aerosol inhaler 2 puff inhalation BID hydrocodone-acetaminophen 10-325 mg tablet 1 tab PO Q6H PRN (Reason: SCIATIC PAIN) acetaminophen [Tylenol Extra Strength] 500 mg Tablet 500 - 1,000 mg PO PRN PRN (Reason: Fever Or Pain) Excedrin Migraine 250-250-65 mg Tablet 1 tab PO PRN rizatriptan 10 mg tablet 10 mg PO PRN PRN (Reason: Migraine Headache) baclofen 20 mg tablet 20 mg PO TID buspirone 15 mg tablet 15 mg PO TID promethazine 25 mg tablet 25 mg PO Q6H PRN (Reason: nausea and vomiting) Qty: 20 0RF sumatriptan succinate 100 mg tablet See Rx Instructions .ROUTE .COMPLEX Rx Instructions: TAKE 1 TABLET BY MOUTH AT ONSET OF MIGRAINE. MAY REPEAT IN 2 HOURS MAX DOSE 2 TABLETS IN 24 HOURS venlafaxine 150 mg capsule,extended release 24hr 150 mg PO DAILY Emgality Pen 120 mg/mL pen injector 120 mg SUBCUT Q28D Discharge Orders: Discharge ED (Routine); Ordered 12/20/24 Ordered By: Fabi Hudson Referrals: Christina Arambula DO [Primary Care Provider, Family Practice] Discharge Diet: Usual diet Discharge Activity: Increase activity as tolerated Patient Instructions: Migraine Headache (ED), Opioid Safety, Pain Management, Patient Portal & [place] Instructions Activity Restrictions/Additional Instructions: [facility] you [facility] healthcare needs today. You have been screened and evaluated and felt safe for discharge. Health conditions do change or evolve sometimes and as such it is important that you follow up with your Primary Doctor to be re checked, 3-5 days is a general good time frame for follow up. You are always welcome to return to the ED for re assessment if your symptoms are worsening or you have new concerns Print Language: Gibraltarian Coding Level of Care Code ED Hearing Therapy Director for Marbin Dumas
[2024-12-20] MEDS: ondansetron 2 mg/ML SDV 2 mL 8 MG IVP (17:06)
[2024-12-20] MEDS: diphenhydrAMINE 50 mg/mL SDV 1mL IVP (17:07)
[2024-12-20] MEDS: metoclopramide 5 mg/mL SDV 2 mL 10 MG IVP (17:09)
[2024-12-20] MEDS: orphenadrine 30 mg/mL Inj 2 mL 60 MG IVP (17:11)
[2024-12-20 17:18] VITALS: PULSE 67; O2SAT 96
[2024-12-20 17:44] VITALS: BP 119/73; PULSE 64; O2SAT 99
== END 2024-12-20 17:45 | disposition home or self-care (01) ==
PROVIDERS: Emergency Provider Emergency Medicine; PCP Family Medicine
DX: G43.919 Migraine, unspecified, intractable, without status migrainosus (principal)
CPT/HCPCS: 36415; 96361; 96374; 96375; 99284; J1100; J1200; J2360; J2405; J2765; J7030